=== PATIENT | female | born 1950 | race Caucasian/White ===

== ENCOUNTER 2017-12-15 14:10 | Outpatient (CLI) | payer MEDICARE, BC ==
--- NOTE | 2017-12-16 08:49 | XRAY Report ---
THREE VIEW RIGHT FOOT: 12/15/2017 CLINICAL INDICATION: Pain. FINDINGS: AP, lateral, oblique views of the right foot demonstrate arthritic changes, with subluxation of the second and third metatarsophalangeal joints and degenerative changes of the first metatarsophalangeal joint. Plantar and posterior calcaneal spurring is also present. There is no evidence of acute fracture. No radiopaque foreign body is seen in the soft tissues. IMPRESSION: MIXED ARTHRITIC CHANGES. THE METATARSOPHALANGEAL SUBLUXATIONS ARE MORE TYPICALLY ASSOCIATED WITH RHEUMATOID ARTHRITIS, BUT OSTEOARTHRITIC CHANGES ARE SEEN IN THE FIRST METATARSOPHALANGEAL JOINT. TD: 12/16/2017 08:43 CINDY
--- NOTE | 2017-12-17 11:45 | DEXA Report ---
DEXA SCAN: 12/15/2017 CLINICAL INDICATION: Postmenopausal. TECHNIQUE: Dual energy x-ray absorptiometry (DXA) was performed on a [employer] system. Regions measured are the AP spine, femoral neck, and, if needed, forearm. COMPARISON: None. In accordance with the International Society for Clinical Densitometry (ISCD) guidelines, data from previous exams may be reanalyzed using current recommendations and techniques. This is done to allow a more accurate basis for comparison with the current study. FINDINGS The data for the lumbar spine is as follows: REGION BMD (g/cm/cm) T-SCORE Z-SCORE L1 1.120 -0.1 1.0 L2 1.103 -0.8 0.3 L3 1.088 -0.9 0.2 L4 1.032 -1.4 -0.3 L1-L4 1.080 -0.8 0.3 NOTE: All evaluable vertebrae are used for classification. The data for the hip is as follows: REGION BMD (g/cm/cm) T-SCORE Z-SCORE Neck 0.837 -1.4 -0.2 TOTAL 0.940 -0.5 0.4 NOTE: The femoral neck or total proximal femur, whichever is lowest, is used for classification. IMPRESSION WHO CLASSIFICATION BASED ON THE INTERNATIONAL REFERENCE STANDARD IS OSTEOPENIA. FRACTURE RISK IS INCREASED. RECOMMENDATION: Patients with diagnosis of osteoporosis or osteopenia should have regular bone mineral density assessment. For those eligible for Medicare, routine testing is allowed once every 2 years. Testing frequency can be increased for patients who have rapidly progressing disease or for those who are receiving medical therapy to restore bone mass. COMMENT World Health Organization (WHO) definitions for osteoporosis and osteopenia: NORMAL BMD: T-score at 1.0 or higher, fracture risk is low. OSTEOPENIA BMD: T-score between 1.0 and -2.5, fracture risk is increased. OSTEOPOROSIS BMD: T-score at 2.5 or lower, fracture risk high. National Osteoporosis Foundation recommends: 1. Obtain adequate dietary calcium (at least 1200 mg per day) and vitamin D (400 -800 international units per day). 2. Participate, as appropriate, in regular weightbearing and muscle- strengthening exercise. 3. Avoid tobacco use and reduce alcohol and caffeine intake. 4. For more detailed information see the website at www.NOF.org. TD: 12/16/2017 08:34 MTDD
== END 2017-12-15 14:11 | disposition home or self-care (01) ==
LOC: DI 14:10
PROVIDERS: ATTEND Family Medicine
DX: M79.671 Pain in right foot (principal); M19.071 Primary osteoarthritis, right ankle and foot; Z78.0 Asymptomatic menopausal state; M85.89 Other specified disorders of bone density and structure, multiple sites
CPT/HCPCS: 77080

== ENCOUNTER 2017-12-15 14:15 | Outpatient (CLI) | payer MEDICARE, BC ==
--- NOTE | 2017-12-16 13:29 | Mammography Report ---
DIGITAL SCREENING MAMMOGRAM: 12/15/2017 CLINICAL INDICATION: A 67-year-old for screening. COMPARISON: Films from [place], [place] dated 08/01/2014, 06/27/2013. TECHNIQUE: Routine CC and MLO projections were obtained of the breasts. FINDINGS: Breasts demonstrate scattered fibroglandular densities bilaterally. Punctate, typically benign calcifications are present. No suspicious masses, clustered microcalcifications or regions of architectural distortion are identified. IMPRESSION: BENIGN FINDINGS. RECOMMENDATION: Routine annual screening unless otherwise clinically indicated. BI-RADS CATEGORY 2 - BENIGN FINDINGS. STANDARD QUALIFYING STATEMENTS: 1. This examination was reviewed with the aid of Computer-Aided Detection (CAD). 2. A negative or benign imaging report should not delay biopsy if clinically suspicious findings are present. Consider surgical consultation if warranted. More than 5% of cancers are not identified by imaging. 3. Dense breasts may obscure an underlying neoplasm. TD: 12/16/2017 13:19
== END 2017-12-15 14:16 | disposition home or self-care (01) ==
LOC: DI 14:15
PROVIDERS: ATTEND Family Medicine
DX: Z12.31 Encounter for screening mammogram for malignant neoplasm of breast (principal)
CPT/HCPCS: 77067

== ENCOUNTER 2019-06-10 11:06 | Outpatient (CLI) | payer MEDICARE ==
--- NOTE | 2019-06-11 10:00 | XRAY Report ---
Reason: ASTHMA Procedure Date: 06/10/2019 Accession Number: [id number] / [id number] Procedure: XRS - Chest 2 View X-Ray CPT Code: 85601 Final Report FULL RESULT: EXAM: CHEST RADIOGRAPHY EXAM DATE: 06/10/2019 11:16 AM. CLINICAL HISTORY: Cough with congestion. COMPARISON: None. TECHNIQUE: 2 views. FINDINGS: Lungs/Pleura: Minimal atelectatic changes seen at the lung bases without gross consolidation. Mediastinum: Heart and mediastinal contours are unremarkable. Other: None. IMPRESSION: Mild bibasilar atelectatic changes without gross consolidation. RADIA
== END 2019-06-10 11:07 | disposition home or self-care (01) ==
LOC: DI.S 11:06
PROVIDERS: ATTEND Nurse Practitioner Family
DX: J98.11 Atelectasis (principal)
CPT/HCPCS: 71046

== ENCOUNTER 2020-01-03 13:39 | Outpatient (CLI) | payer MEDICARE ==
--- NOTE | 2020-01-03 14:15 | SLEEP CARE CONSULTATION ---
Information from patient questionnaire entered by Melinda Remy. I have reviewed and concur with the information entered by Melinda Remy. This document represents the service I personally performed and the decisions made by me, Gómez Sam MD, [facility]. History of Present Illness Service Date and Time: 01/03/2020 1339 Reason for Visit: New patient, Previously diagnosed sleep apnea (has CPAP, not used in 2 years) Chief Complaint: reports: Frequent awakenings at night Duration of Symptoms: 4 months Usual bedtime: 10-11 pm Time it takes to fall asleep: 10 minutes Observed to quit breathing while asleep: No Sleeps alone due to snoring: No Number of times waking at night: 4-12 Reasons for waking at night: reports: Other (unsure) Toss, Turn, or Twitch while sleeping: Yes Recalls having dreams: Yes Usually gets out of bed at: 7:30 am Feels refreshed in the morning: No Morning headache: No Sleepy or fatigued during the day: Yes Ever fallen asleep while driving: No Takes day naps: Yes Dreams during day naps: Yes Prior sleep studies: Yes Year and Where: 2015 Additional HPI information: I had the pleasure of seeing Ms. Castorena today regarding obstructive sleep apnea-hypopnea. As you know, she is a 69 year old lady who was diagnosed with the sleep-disordered breathing in [place]. Originally she had a sleep study in 1998 that showed mild obstructive sleep apnea-hypopnea with an AHI of 8.3. In 2016 she had another in-laboratory polysomnography showing an AHI of 32. She used a CPAP for one year then quit because her developed dementia and she has to watch him at night. She recalls some improvement with the treatment. She wore a nasal mask. The CPAP was set at 7 cmH2O. She would like to start using the device again. - Parasomnia Symptoms Ever been unable to move upon waking from sleep: No Ever felt weak in the knees when startled or emotional: No Bothered by creepy, crawly, restless sensations in legs: Yes (sometimes) Problems with memory or concentration: No Subjective Initial Geronimo Sleepiness Scale score: 6 (in 2019) Past Medical History Past Medical History: reports: Hypertension, Arthritis, Asthma, GERD Social History The patient's occupation is a Retired. Patient is and lives in [place]. Have you smoked in the past 12 months: No Alcohol use: Yes Alcohol amount and frequency: 1-2 drinks nightly Caffeine use: Yes Caffeine amount and frequency: 1-2 Family History Family history of sleep disordered breathing: Yes Allergies and Home Medications Drug allergies reviewed: Yes Home medication list reviewed: Yes Review of Systems Cardiovascular: reports: high blood pressure (slight) Respiratory: reports: chronic cough Gastrointestinal: reports: heartburn Ear/Nose/Throat: reports: sinus problems, wisdom teeth removed Endocrine: reports: thyroid disease, sluggishness Musculoskeletal: reports: joint pain, neck pain, back pain, joint swelling Immunologic: reports: other (postnasal drip) Physical Exam Height: 5 ft 4 in Weight: 177 lb Body Mass Index: 30.4 BMI Classification: Obese Impression and Plan IMPRESSION: 1. Obstructive Sleep Apnea-Hypopnea Syndrome, severe, as previously diagnosed but presently not treated. Narrow oropharynx and obesity are common predisposing factors for obstructive sleep apnea-hypopnea syndrome. Pat hophysiology of sleep-disordered breathing was discussed. Because she has not been compliant, we will need to repeat either the in-laboratory polysomnography or home sleep apnea test (HSAT) to requalify her for supplies through Medicare. Plan: 1. Schedule a home sleep apnea test (HSAT) because she cannot leave her home alone at night. 2. Attempt to lose weight. 3. Return for a follow up after the test. Visit Type: In Office Time Spent with Patient (minutes): 15 Provider Statement: I spent 100% of the Face to Face Visit with the patient with greater than 50% spent counseling the patient and coordination of care.
== END 2020-01-03 13:40 | disposition home or self-care (01) ==
LOC: SC 13:39
PROVIDERS: ATTEND Internal Medicine Pulmonary Disease
DX: G47.33 Obstructive sleep apnea (adult) (pediatric) (principal); E66.9 Obesity, unspecified; Z68.30 Body mass index [BMI] 30.0-30.9, adult
CPT/HCPCS: 99203; G0463; 99212

== ENCOUNTER 2020-01-18 09:49 | Outpatient (CLI) | payer MEDICARE ==
--- NOTE | 2020-01-19 11:05 | Mammography Report ---
BILATERAL DIGITAL SCREENING MAMMOGRAM 3D/2D: 01/18/2020 CLINICAL: Routine screening. Comparison is made to exams dated: 12/15/2017 mammogram and 08/11/2014 mammogram - [facility]. The tissue of both breasts is heterogeneously dense. This may lower the sensitivity of ma mmography. There is an 8 mm round asymmetry with an obscured margin in the right breast central to the nipple in the retroareolar region. This is increased in size. No other significant masses, calcifications, or other findings are seen in either breast. IMPRESSION: INCOMPLETE: NEEDS ADDITIONAL IMAGING EVALUATION The 8 mm round asymmetry in the right breast is indeterminate. Additional views with possible ultras ound are recommended. This exam was interpreted at Station ID: [id number]. NOTE: For mammograms, a report in lay terms will be sent to the patient. Approximately 15% of breast malignancies will not be visualized mammographically. In the management of a palpable breast mass, a negative mammogram must not discourage biopsy of a clinically suspicious lesion. Electronically Signed By: Leanne silvestre/:01/18/2020 15:22:01 ACR BI-RADS Category 0: Incomplete 3340F PARENCHYMAL PATTERN: (D) - The breast(s) demonstrate(s) heterogeneously dense fibroglandular parenchy ma. BI-RADS CATEGORY: (0) - 0 Mammo and [place] [id number] Immediate follow-up LATERALITY: (R)
== END 2020-01-18 09:50 | disposition home or self-care (01) ==
LOC: DI 09:49
PROVIDERS: ATTEND Family Medicine
DX: Z12.31 Encounter for screening mammogram for malignant neoplasm of breast (principal); R92.8 Other abnormal and inconclusive findings on diagnostic imaging of breast
CPT/HCPCS: 77063; 77067

== ENCOUNTER 2020-09-16 19:22 | Outpatient (CLI) | payer MEDICARE | END 2020-09-16 19:23 | disposition critical access hospital (66) | LOC: EMS 19:22 | PROVIDERS: ATTEND Emergency Medicine | DX: M25.561 Pain in right knee (principal); M79.604 Pain in right leg | CPT/HCPCS: A0425; A0429 ==

== ENCOUNTER 2020-09-16 20:00 | Inpatient (IN) | payer MEDICARE ==
[2020-09-16] MEDS ORDERED: ACETAMINOPHEN 325 MG TABLET PO STA (20:08)
--- NOTE | 2020-09-16 20:10 | ED Physician Documentation ---
PD HPI LOWER EXT INJURY - Stated complaint Stated Complaint: R KNEE PX - History obtained from History obtained from: Patient - Additional information Additional information: Otherwise healthy 70-year-old woman was at home with her . He started to fall and kind of fell on her and then she went down on her right leg and felt a pop with moderate pain about the right knee and cannot walk or bear weight. No other injuries. No head injury. On initial evaluation declines pain medication other than Tylenol because she does not want to be "fuzzy." Review of Systems Ten Systems: 10 systems reviewed and negative Constitutional: reports: Reviewed and negative Nose: reports: Reviewed and negative Throat: reports: Reviewed and negative PD PAST MEDICAL HISTORY - Present Medications Home Medications: Ambulatory Orders Medication Instructions Recorded Confirmed Albuterol Sulfate [Proair Hfa 1 puffs PRN 09/16/20 Inhaler] Mometasone Furoate [Asmanex Hfa] 2 puffs INH BID 09/16/20 09/16/20 Valsartan/Hydrochlorothiazide 1 tab PO DAILY 09/16/20 09/16/20 [Diovan Hct 160-25 mg Tablet] - Allergies Allergies/Adverse Reactions: Allergies Allergy/AdvReac Type Severity Reaction Status Date / Time amoxicillin Allergy Hives Verified 09/16/20 20:15 bacitracin Allergy Hives Verified 09/16/20 20:15 clavulanic acid Allergy Hives Verified 09/16/20 20:15 [From Augmentin] Sulfa (Sulfonamide Allergy Hives Verified 09/16/20 20:15 Antibiotics) PD ED PE NORMAL - Vitals Vital signs reviewed: Yes - General General: Alert and oriented X 3, No acute distress - HEENT HEENT: PERRL, EOMI - Neck Neck: Supple, no meningeal sign, No bony TTP - Cardiac Cardiac: RRR, No murmur - Respiratory Respiratory: No respiratory distress, Clear bilaterally - Abdomen Abdomen: Soft, Non tender - Back Back: No CVA TTP, No spinal TTP - Derm Derm: Normal color, Warm and dry - Extremities Extremities: Other (There is potential deformity below the right knee, she is quite tender to the inferior part of the right knee, the tibial plateau especially. There is also some tenderness of the lateral right ankle. The hip is nontender. Normal pedal pulses and sensation.) - Neuro Neuro: Alert and oriented X 3, Normal speech Results - Vitals Vitals: Vital Signs - 24 hr 09/16/20 09/16/20 20:10 22:34 Temperature 37.2 C 36.8 C Heart Rate 95 Heart Rate [ 75 Brachial] Respiratory 16 20 Rate Blood Pressure 174/83 H Blood Pressure 149/64 H [Right Brachial artery] O2 Saturation 100 98 Oxygen O2 Source Room air - Labs Labs: Laboratory Tests 09/16/20 09/16/20 09/16/20 21:54 21:54 21:54 WBC 11.0 H RBC 4.26 Hgb 13.9 Hct 41.0 MCV 96.2 MCH 32.6 H MCHC 33.9 RDW 12.5 Plt Count 248 MPV 10.1 Neut # (Auto) 8.1 H Lymph # (Auto) 1.9 Sac # (Auto) 0.8 Eos # (Auto) 0.1 Baso # (Auto) 0.1 Absolute Nucleated RBC 0.00 Nucleated RBC % 0.0 PT 11.8 INR 1.1 Sodium 141 Potassium 3.4 L Chloride 102 Carbon Dioxide 24 Anion Gap 15.0 H BUN 17 Creatinine 0.7 Estimated GFR (MDRD) 83 L Glucose 139 H Calcium 9.5 - Rads (name of study) R knee XR and CT KNee Radiology: EMP read contemporaneously (Displaced depressed right lateral tibial plateau fracture) PD MEDICAL DECISION MAKING - ED course ED course: Healthy 70-year-old woman presents with isolated right knee and leg injury and found to have a lateral tibial plateau fracture. Discussed by phone with Dr. Lau, our on-call orthopedist. He feels like this would be a surgical issue and she should be placed in the hospital pending surgery. That said he notes that he is going off service tomorrow and does not know the comfort level of the surgeon coming on tomorrow with this type of issue. Thankfully, the orthopedic surgeon funeral pre need consultant tomorrow, Dr Castillo, had his phone with him and I communicated with him and he agrees with admission to the hospital for operative fixation. I wrote transition orders to surgical status, and asked Dr. Heidi Zuniga to do a consult history and physical and preoperative clearance. Patient initially did not want anything other than Tylenol for pain but later acquiesced and required some IV pain medication. Departure - Departure Disposition: ED Transfer to [facility] Clinical Impression: Fall from ground level Fracture of right tibial plateau Qualifiers: Encounter type: initial encounter Fracture type: closed Qualified Code(s): S82.141A - Displaced bicondylar fracture of right tibia, initial encounter for closed fracture Condition: Stable
[2020-09-16] MEDS ORDERED: ONDANSETRON 4 MG/2 ML VIAL IVP STA (20:43)
[2020-09-16] MEDS ORDERED: HYDROmorphone 1 MG/ML CARPUJECT IVP STA (20:43)
--- NOTE | 2020-09-16 21:04 | XRAY Report ---
PROCEDURE: Knee 4 View RT INDICATIONS: leg inj TECHNIQUE: 4 views of the right knee(s) were acquired. COMPARISON: None. FINDINGS: Bones: Compressed and displaced lateral tibial plateau fracture. Tricompartmental osteoarthritis. Soft tissues: No joint effusion. No suspicious soft tissue calcifications. IMPRESSION: Depressed lateral tibial plateau fracture. Reviewed by: Stella Hay MD, PhD on 09/16/2020 9:03 PM PST Approved by: Stella Hay MD, PhD on 09/16/2020 9:03 PM PST Station ID: [id number]
--- NOTE | 2020-09-16 21:05 | XRAY Report ---
PROCEDURE: Tib/Fib RT INDICATIONS: leg inj TECHNIQUE: 2 views of the tibia and fibula were acquired. COMPARISON: None FINDINGS: Bones: No fractures or dislocations. No suspicious bony lesions. Soft tissues: No suspicious soft tissue calcifications or masses. IMPRESSION: No fracture involving the distal tibia or distal fibula. Reviewed by: Stella Hay MD, PhD on 09/16/2020 9:04 PM PST Approved by: Stella Hay MD, PhD on 09/16/2020 9:04 PM PST Station ID: [id number]
--- NOTE | 2020-09-16 21:25 | CT Report ---
PROCEDURE: LOWER EXTREMITY WO - RT INDICATIONS: tibial plateau fracture TECHNIQUE: Noncontrast 3 mm axial sections acquired of the right knee, with coronal and sagittal reformats. COMPARISON: None. FINDINGS: Image quality: Excellent. Bones: Comminuted fracture involving the posterior-lateral margin of the lateral tibial plateau. Fra cture fragments are displaced laterally and compressed up to 6 mm. Mild tricompartmental osteoarthrit is. Soft tissues: Small knee joint effusion noted. No juxta-articular edema or fluid collections. IMPRESSION: Displaced and depressed right lateral tibial plateau fracture. Reviewed by: Stella Hay MD, PhD on 09/16/2020 9:24 PM PST Approved by: Stella Hay MD, PhD on 09/16/2020 9:24 PM PST Station ID: [id number]
[2020-09-16] MEDS ORDERED: METOCLOPRAMIDE 10 MG/2 ML VIAL IVP PRN (21:41)
[2020-09-16] MEDS ORDERED: ONDANSETRON 4 MG/2 ML VIAL IVP PRN (21:41)
[2020-09-16] MEDS ORDERED: HYDROmorphone 0.5 MG/0.5 ML SYRINGE IVP PRN (21:41)
[2020-09-16 21:57] LABS: BASOPHILS # (AUTO) 0.1 10^3/uL (0.0-0.1); BASOPHILS % (AUTO) 0.5 %; EOSINOPHILS # (AUTO) 0.1 10^3/uL (0.0-0.7); EOSINOPHILS % (AUTO) 0.5 %; HGB - HEMOGLOBIN 13.9 g/dL (12.0-16.0); LYMPHOCYTES # (AUTO) 1.9 10^3/uL (1.5-3.5); LYMPHOCYTES % (AUTO) 17.4 %; MEAN CORPUSCULAR HEMOGLOBIN 32.6 pg (27.0-31.0); MEAN CORPUSCULAR HGB CONC 33.9 g/dL (32.0-36.0); MEAN CORPUSCULAR VOLUME 96.2 fL (81.0-99.0); MEAN PLATELET VOLUME 10.1 fL (7.9-10.8); MONOCYTES # (AUTO) 0.8 10^3/uL (0.0-1.0); MONOCYTES % (AUTO) 7.4 %; NEUTROPHILS # (AUTO) 8.1 10^3/uL (1.5-6.6); NEUTROPHILS % (AUTO) 73.7 %; PLT - PLATELET COUNT 248 10^3/uL (130-450); RED BLOOD COUNT 4.26 10^6/uL (4.20-5.40); RED CELL DISTRIBUTION WIDTH 12.5 % (12.0-15.0)
[2020-09-16 22:03] LABS: INR 1.1 (0.8-1.2); PT - PROTHROMBIN TIME 11.8 secs (9.9-12.6)
[2020-09-16 22:06] LABS: CALCIUM 9.5 mg/dL (8.5-10.3); CREATININE 0.7 mg/dL (0.4-1.0); POTASSIUM 3.4 mmol/L (3.5-5.0)
[2020-09-16] MEDS: KETOROLAC 15 MG/ML VIAL IVP PRN (22:36)
[2020-09-16] MEDS: LACTATED RINGERS 1,000 ML IV SCH (22:37)
[2020-09-16] MEDS ORDERED: ALBUTEROL NEB 2.5 MG/3 ML INH PRN (22:45)
[2020-09-16] MEDS ORDERED: ZOLPIDEM 5 MG TABLET PO PRN (22:45)
[2020-09-16] MEDS ORDERED: POTASSIUM CHLORIDE 20 MEQ TABLET PO ONE (22:46)
--- NOTE | 2020-09-16 23:18 | CONSULTATION NOTE ---
Referring Provider Name of Referring Provider:: Clifford Castillo and Dr. Lowe Consult Date: 09/16/20 Chief Complaint - Chief Complaint Chief Complaint: fall with tibial fx History of Present Illness - Admitted From Admitted From:: Home via EMS - History Obtained From Records Reviewed: [facility] History obtained from: patient Exam Limitations: none - History of Present Illness HPI Comment/Other: This is a jimmy 70-year-old white female who is the caregiver of her who has Lewy body dementia and severe movement disorder with parkinsonism. She herself has a history of high blood pressure but has no history of coronary artery disease, A. fib, angina, congestive heart failure, or recent change in cardiopulmonary status. 20 years ago she did have an echocardiogram that told her that she had "mitral valve prolapse" but that is the only valvular heart disease she knows about. She denies current chest pain, palpitations, orthopnea. She works very hard at taking care of her . She has had no recent change in her own healthcare status. She was walking in front of him, when he fell forward. He hit the back of her leg, which then caused her to fall sideways. His weight fell on her and her leg. Her weight fell on her leg. She felt the pain and snap as it hit the floor. She is stunned at how fast all of this happened. She states that if she did not have her phone on her, they may have been laying in that hallway for days. There is no way she was going to be able to get up and there is no way for him to get up. She was able to call EMS. She was brought to the emergency room and seen by Dr. Ballesteros. Temperature was 37.2. Pulse was 95. Blood pressure 174/83. Respirations 16 and she is 100% on room air. She has a normal physical exam other than the broken limb. Imaging study confirms a displaced and depressed right lateral tibial plateau fracture. Orthopedic surgery on-call has been notified. He is asked that the patient be made n.p.o. after midnight. Next orthopedic director of corporate responsibility tomorrow will be Dr. Castillo.. Dr. Castillo is aware of the patient will be taking her to the OR tomorrow. I am being asked to see the patient in consultation for preop evaluation. 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 Dad at age 70 of congestive heart failure. 1 sister is completely healthy without diabetes, hypertension, PA, CHF, thyroid, cancer. 1 child is completely healthy. He is head of production at [employer] in [place]. Living arrangement: At home Living Situation: With spouse/s.o. Social History Notes: She used to smoke socially when she was in college. But she never smoked on a regular basis. She has no history of alcohol abuse. She drinks a glass of wine with dinner on a daily basis. 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 She is to her second for the last 14 years. They moved to [place] 4 years ago because [place]. Unfortunately her has Lewy body dementia with severe parkinsonism. She has a private duty hire that works 16 hours a week but that private duty higher is currently sick with the flu. Awaiting Covid testing. She is starting to realize that her (who has 3 children from his first marriage) will most likely either need 24/7 care in their home or to be admitted to a memory care unit. He is starting to develop hallucinations, his risk of fall is much higher. - Substance History Use: Uses substance without health or social issues: NONE Abuse: Recurrent use of substance despite neg consequences: NONE Dependence: Experiences withdrawal or developed tolerances: NONE - POLST Patient has POLST: No POLST Status: Full Code Meds/Allgy - Home Medications Home Medications: Ambulatory Orders Medication Instructions Recorded Confirmed Albuterol Sulfate [Proair Hfa 1 puffs PRN 09/16/20 Inhaler] Mometasone Furoate [Asmanex Hfa] 2 puffs INH BID 09/16/20 09/16/20 Valsartan/Hydrochlorothiazide 1 tab PO DAILY 09/16/20 09/16/20 [Diovan Hct 160-25 mg Tablet] - Allergies Allergies/Adverse Reactions: Allergies Allergy/AdvReac Type Severity Reaction Status Date / Time amoxicillin Allergy Hives Verified 09/16/20 20:15 bacitracin Allergy Hives Verified 09/16/20 20:15 clavulanic acid Allergy Hives Verified 09/16/20 20:15 [From Augmentin] Sulfa (Sulfonamide Allergy Hives Verified 09/16/20 20:15 Antibiotics) Review of Systems - Constitutional Constitutional: reports: Fatigue (That is more emotional and physical. The burden of caring for him right now is tremendous. He is 82 years old and told her that he wants to live to be 89. She burst into tears when he said that.). denies: Fever, Chills, Malaise, Weakness, Poor appetite - Eyes Eyes: denies: Pain, Irritation, Amaurosis, Blurred vision, Vision loss - Ears, Nose & Throat Ears, Nose & Throat: reports: Nasal congestion. denies: Ear pain, Hearing loss, Hearing aids, Vertigo, Nasal pain, Nasal discharge - Cardiovascular Cariovascular: denies: Irregular heart rate, Palpitations, Chest pain, Edema, Lightheadedness, Syncope, Exertional dyspnea, Decr. exercise tolerance - Respiratory Respiratory: reports: Wheezing (occasionally w her asthma, uses asmanex sporadically and not daily), Apnea. denies: Cough, Sputum production, Snoring, Hemoptysis, Orthopnea, SOB at rest, SOB with exertion - Gastrointestinal Gastrointestinal: reports: Diarrhea (chronic and daily w her IBS for decades), Nausea (right now). denies: Abdominal pain, Abdominal distention, Constipation, Change in bowel habits, Rectal bleeding, Bloody stools, Vomiting - Genitourinary Genitourinary: reports: Incontinence (with sneezing rarely, doing kegels now). denies: Dysuria, Frequency, Urgency, Hematuria - Musculoskeletal Musculoskeletal: reports: Muscle aches, Joint pain (new muscle pain right side of neck and new shoulder pain w movement. she has been lifting him a lot more w repetitive injury now). denies: Muscle pain, Back pain - Integumentary Integumentary: denies: Rash, Pruritis - Neurological Neurological: denies: General weakness, Focal weakness, Headache, Dizziness, Memory problems, Pre-existing deficit - Psychiatric Psychiatric: reports: Depression (as she faces the future w his care). denies: Anxiety, Suicidal, Delusions, Hallucinations, Homicidal - Endocrine Endocrine: denies: Polyuria, Polydypsia, Polyphagia - Hematologic/Lymphatic Hematologic/Lymphatic: denies: Anemia, Bruising, Petechiae Exam - Vital Signs Reviewed Vital Signs: Yes Vital Signs: Vital Signs x48h Temp Pulse Pulse Resp BP BP Pulse Ox 09/16/20 22:34 36.8 C 75 20 149/64 H 98 09/16/20 20:10 37.2 C 95 16 174/83 H 100 - Physical Exam General Appearance: positive: No acute distress, Alert, Other (Pleasant oriented 5 foot 4 inch female who is 79.3 kg. Well-nourished, well-developed.) Eyes Bilateral: positive: PERRL, EOMI ENT: positive: Pharynx nml Neck: positive: No JVD. negative: Stiff neck Respiratory: positive: No respiratory distress. negative: Wheezes, Rales, Rhonchi Cardiovascular: positive: Regular rate & rhythm. negative: Systolic murmur, Gal lop/S4, Friction rub Peripheral Pulses: positive: 1+ Abdomen: positive: Non-tender, No organomegaly, Nml bowel sounds, No distention Skin: positive: Warm, Dry Extremities: positive: No pedal edema, Other (Right leg immobile. Left leg is normal. Left leg with normal range of motion. No clubbing cyanosis or edema.) Neurologic/Psychiatric: positive: Oriented x3, CN's nml (2-12), Motor nml, Sensation nml, Mood/affect nml Conclusion/Plan - Diagnosis Diagnosis: Mechanical fall in this jimmy 70-year-old white female who does not have a history of osteoporosis. She has suffered a distal tib-fib fracture on the right. Preoperative evaluation shows her to be at low risk for serious complication, 4.4%. Any complication is 5.3%. She has a 19.3% risk of being discharged to a nursing or rehab facility. At this time there is no acute, new change in status that would require us to change her medications, modify blood pressure, rhythm, or labs. Hypertension is stable. History of asthma stable without current exacerbation. Hypokalemia on labs. - Plan Plan: She is placed in the same day surgery status. N.p.o. after midnight. Pain management written for. Nausea medicine written for. We will hold her blood pressure medicine at this time until she is after surgery. She is not on any beta-blockers. Hypokalemia will be supplemented w oral Kdur. Orthopedic surgery will operate on her tomorrow. Depending on how she is ambulatory she is we will see if she can go home with outpatient physical therapy. Commending that she get an outpatient DEXA scan to evaluate her for osteoporosis in the next 2 to 3 months. She might be a candidate for Reclast once a year. She says prior scans showed osteopenia but no osteoporosis.She is requesting social work consultation to see what her options are to help take care of her . I have also recommended that she talk to his children (2 sons and a daughter) about advance care planning. Lewy body dementia with parkinsonism is a rapidly progressive disease. She is already experiencing the burden of being a caregiver. She is looking for recommendations and advice. I would recommend that she also seek guidance with palliative care consultation. - Lab Results Lab results reviewed: Yes Fish Bones: 09/16/20 21:54 09/16/20 21:54 - Diagnostic Imaging Results Diagnostic Imaging Results: positive: Final report reviewed Diagnostic Imaging Results Comments: Right knee films with depressed lateral tibial plateau fracture. Right tib-fib plain film without fracture Right lower extremity CT with displaced and depressed right lateral tibial plateau fracture.
[2020-09-16 23:43] LABS: B. PARAPERTUSSIS- RESP PCR PAN NOT DETECTED; B. PERTUSSIS- RESP PCR PANEL NOT DETECTED; C. PNEUMONIAE- RESP PCR PANEL NOT DETECTED; CORONAVIRUS 229E-RESP PCR NOT DETECTED; CORONAVIRUS HKU1-RESP PCR NOT DETECTED; CORONAVIRUS NL63-RESP PCR NOT DETECTED; CORONAVIRUS OC43-RESP PCR NOT DETECTED; HUMAN METAPNEUMOVIRUS NOT DETECTED; INFLUENZA A- RESP PCR PANEL NOT DETECTED; INFLUENZA B - RESP PCR PANEL NOT DETECTED; M. PNEUMONIAE- RESP PCR PANEL NOT DETECTED; PARAINFLUENZA VIRUS 1 NOT DETECTED; PARAINFLUENZA VIRUS 2 NOT DETECTED; PARAINFLUENZA VIRUS 3 NOT DETECTED; PARAINFLUENZA VIRUS 4 NOT DETECTED; RHINOVIRUS/ENTEROVIRUS NOT DETECTED; RSV- RESP PCR PANEL NOT DETECTED; SARS-CoV-2 -RESP PCR PANEL NOT DETECTED
[2020-09-17] MEDS: KETOROLAC 15 MG/ML VIAL IVP PRN ×4 (04:08→23:58)
[2020-09-17] MEDS: LACTATED RINGERS 1,000 ML IV SCH (08:22)
[2020-09-17] MEDS: ACETAMINOPHEN 325 MG TABLET PO PRN ×2 (08:35→14:13)
--- NOTE | 2020-09-17 09:13 | CONSULTATION NOTE ---
Referring Provider Name of Referring Provider:: emergency dept, Dr. Pennington Consult Date: 09/17/20 Chief Complaint - Chief Complaint Chief Complaint: pain right knee following fall at home History of Present Illness - History Obtained From Records Reviewed: yes History obtained from: patient Exam Limitations: none - History of Present Illness HPI Comment/Other: This is a pleasant 70-year-old woman who resides in [place]. She lives in [facility] in [facility] for a number of years. She moved here approximately 4- 5 years ago. She is the primary caregiver of her who has Parkinson's and very advanced dementia. He needs almost 23-hour care. Yesterday he was walking and stumbled into her from her back. This caused her to fall onto her right leg. She felt the snap and had immediate pain to her right knee and was unable to bear weight. She denies previous problems with her right knee. Most of her activity is indoor with occasional outdoor for shopping and other necessities. She denies chest pain, shortness of breath, dizziness, loss of consciousness or syncope associated with the fall. Her pain seems to be well controlled around 5-6 at the present time. The pain is not increasing. She has no neurologic or vascular symptoms. She normally walks without walking aid. 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 Dad at age 70 of congestive heart failure. 1 sister is completely healthy without diabetes, hypertension, [place], CHF, thyroid, cancer. 1 child is completely healthy. He is head of [employer] at [employer] in [place]. Living arrangement: At home Living Situation: With spouse/s.o. Social History Notes: She used to smoke socially when she was in college. But she never smoked on a regular basis. She has no history of alcohol abuse. She drinks a glass of wine with dinner on a daily basis. 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 She is to her second for the last 14 years. They moved to [place] 4 [place] ago [place]. Unfortunately her has Lewy body dementia with severe parkinsonism. She has a private duty hire that works 16 hours a week but that private duty higher is currently sick with the flu. Awaiting Covid testing. She is starting to realize that her (who has 3 children from his first marriage) will most likely either need 24/7 care in their home or to be admitted to a memory care unit. He is starting to develop hallucinations, his risk of fall is much higher. - Substance History Use: Uses substance without health or social issues: NONE Abuse: Recurrent use of substance despite neg consequences: NONE Dependence: Experiences withdrawal or developed tolerances: NONE - POLST Patient has POLST: No POLST Status: Full Code Meds/Allgy - Home Medications Home Medications: Ambulatory Orders Medication Instructions Recorded Confirmed Albuterol Sulfate [Proair Hfa 1 puffs PRN 09/16/20 Inhaler] Mometasone Furoate [Asmanex Hfa] 2 puffs INH BID 09/16/20 09/16/20 Valsartan/Hydrochlorothiazide 1 tab PO DAILY 09/16/20 09/16/20 [Diovan Hct 160-25 mg Tablet] - Allergies Allergies/Adverse Reactions: Allergies Allergy/AdvReac Type Severity Reaction Status Date / Time amoxicillin Allergy Hives Verified 09/16/20 20:15 bacitracin Allergy Hives Verified 09/16/20 20:15 clavulanic acid Allergy Hives Verified 09/16/20 20:15 [From Augmentin] Sulfa (Sulfonamide Allergy Hives Verified 09/16/20 20:15 Antibiotics) Exam - Vital Signs Vital Signs: Vital Signs x48h Temp Pulse Resp BP Pulse Ox 09/17/20 08:07 37 C 77 16 144/62 H 96 09/17/20 04:14 37 C 67 16 127/62 94 - Physical Exam General Appearance: positive: No acute distress Peripheral Pulses: positive: 2+ Skin: positive: Dry Neurologic/Psychiatric: positive: Oriented x3, Motor nml, Sensation nml, Mood/affect nml Comments/Other: Her right lower extremity reveals slight valgus alignment in comparison to the left leg. The right knee has mild swelling. Skin is completely intact. She has some tenderness over the medial collateral ligament but most of her tenderness is posterolateral right tibia plateau. With the knee in extension stability is good, right side. Extensor mechanism is intact. There is no ecchymosis. There is no sign of compartment syndrome. Neurovascular is completely intact to right lower extremity Conclusion and Plan - Lab Results Laboratory Results 09/16/20 22:15: Nasal Adenovirus (PCR) NOT DETECTED, Nasal B. parapertussis DNA (PCR) NOT DETECTED, Nasal Coronavir 229E PCR NOT DETECTED, Nasal Coronavir HKU1 PCR NOT DETECTED, Nasal Coronavir NL63 PCR NOT DETECTED, Nasal Coronavir OC43 PCR NOT DETECTED, Nasal Enterovir/Rhinovir PCR NOT DETECTED, Nasal Influenza B PCR NOT DETECTED, Nasal Influenza A PCR NOT DETECTED, Nasal Parainfluen 1 PCR NO T DETECTED, Nasal Parainfluen 2 PCR NOT DETECTED, Nasal Parainfluen 3 PCR NOT DETECTED, Nasal Parainfluen 4 PCR NOT DETECTED, Nasal RSV (PCR) NOT DETECTED, Nasal B.pertussis DNA PCR NOT DETECTED, Nasal C.pneumoniae (PCR) NOT DETECTED, Geo Human Metapneumo PCR NOT DETECTED, Nasal M.pneumoniae (PCR) NOT DETECTED, Nasal SARS-CoV-2 (PCR) NOT DETECTED 09/16/20 21:54: Sodium 141, Potassium 3.4 L, Chloride 102, Carbon Dioxide 24, Anion Gap 15.0 H, BUN 17, Creatinine 0.7, Estimated GFR (MDRD) 83 L, Glucose 139 H, Calcium 9.5 09/16/20 21:54: PT 11.8, INR 1.1 09/16/20 21:54: WBC 11.0 H, RBC 4.26, Hgb 13.9, Hct 41.0, MCV 96.2, MCH 32.6 H, MCHC 33.9, RDW 12.5, Plt Count 248, MPV 10.1, Neut # (Auto) 8.1 H, Lymph # (Auto) 1.9, Wilkin # (Auto) 0.8, Eos # (Auto) 0.1, Baso # (Auto) 0.1, Absolute Nucleated RBC 0.00, Nucleated RBC % 0.0 - Diagnostic Imaging Results Diagnostic Imaging Results: negative: Read independently (I independently visualized both routine x-rays of the right tibia, right knee and also the CT scan. She has a split depression fracture involving the posterior lateral aspect of the right tibial plateau, approximately 5 to 6 mm of depression but localized. This is a partial articular injury. The) - Diagnosis Diagnosis: Split depression fracture right lateral tibial plateau, partial articular injury - Plan Plan: I spent considerable time discussing his the potential treatment options: Nonoperative versus operative or delayed operative. The operative would involve open reduction internal fixation of the lateral tibial plateau. The nonoperative treatment would involve closed treatment with a hinged knee brace, nonweightbearing and early range of motion. The main complication of this fracture is posttraumatic arthritis of the knee joint. This could necessitate consideration for a right total knee arthroplasty. Her had a problem with his right hip, fracture, underwent open reduction internal fixation 3 times with revision before undergoing a total hip arthroplasty. She prefers to avoid surgery if it is possible and would consider total knee arthroplasty if having difficulties with nonoperative treatment. I think the results are better with her primary total knee arthroplasty than after a failed open reduction internal fixation. She also has osteopenia. Using shared decision making, she prefers nonoperative treatment and knows that a right total knee arthroplasty may be necessary in the future. Physical and occupational therapy can be ordered. She should ambulate with a walker nonweightbearing. If she can do this and is a safe discharge, she could return to home. I would like to recheck her in the orthopedic clinic in 1 week. I would recommend 81 mg of aspirin twice daily for deep venous thrombosis prophylaxis. Discussed with Dr. Shipman.
--- NOTE | 2020-09-17 10:25 | PHARMACY PROGRESS NOTE ---
- Best Possible Medication History Admit Date and Time: Processed by: Pharmacy Medication History completed: Yes Patient Interview: Completed Secondary Source(s): Pharmacy records, Insurance records As the person ultimately responsible for medication therapy, providers are able to order a medication from an existing home medication list in [facility] via the "Reconcile Routine" prior to Confirmation of that medication by manager decision support. Such practice is discouraged except when the physician, in their clinical judgment, deems that a medical need exists for a medication without regard to previous use.
--- NOTE | 2020-09-17 18:32 | PROVIDER PROGRESS NOTE ---
Subjective - Prog Note Date Prog Note Date: 09/17/20 - Subjective Subjective: She still complains of significant pain around the right knee and she feels like she has muscle spasms in the right leg. She states her pain is just below a 10 out of 10. She states it is worse than giving . Current Medications - Current Medications Current Medications: Active Medications Acetaminophen (Acetaminophen 325 Mg Tablet) 650 mg PO Q6H PRN PRN Reason: Pain or Fever > 38C (100.4F) Last Admin: 09/17/20 14:13 Dose: 650 mg Documented by: Hydrocodone Bitart/Acetaminophen (Hydrocod/Acetam 10 Mg/325 Mg Tablet) 1 tab PO Q4HR PRN PRN Reason: PAIN Albuterol (Albuterol Neb 2.5 Mg/3 Ml) 2.5 mg INH RTQ4H PRN PRN Reason: Wheezing Aspirin (Aspirin Chew 81 Mg Tablet) 81 mg PO BID YANG Hydrochlorothiazide (Hydrochlorothiazide 25 Mg Tablet) 25 mg PO DAILY YANG Hydromorphone HCl (Hydromorphone 0.5 Mg/0.5 Ml Syringe) 0.5 mg IVP Q1H PRN PRN Reason: PAIN Ketorolac Tromethamine (Ketorolac 15 Mg/Ml Vial) 15 mg IVP Q6H PRN PRN Reason: PAIN Stop: 09/21/20 21:40 Last Admin: 09/17/20 16:25 Dose: 15 mg Documented by: Losartan Potassium (Losartan 50 Mg Tablet) 50 mg PO DAILY YANG Metoclopramide HCl (Metoclopramide 10 Mg/2 Ml Vial) 5 mg IVP Q6H PRN PRN Reason: Nausea / Vomiting Last Admin: 09/16/20 22:43 Dose: 5 mg Documented by: Ondansetron HCl (Ondansetron 4 Mg/2 Ml Vial) 4 mg IVP Q6H PRN PRN Reason: Nausea / Vomiting Zolpidem Tartrate (Zolpidem 5 Mg Tablet) 5 mg PO QPM PRN PRN Reason: Insomnia Albuterol Sulfate [Proair Hfa Inhaler] 2 puffs INH ONCE PRN 09/16/20 Mometasone Furoate [Asmanex Hfa] 2 puffs INH BID 09/16/20 Valsartan/Hydrochlorothiazide [Diovan Hct 160-25 mg Tablet] 1 tab PO DAILY 09/16/20 Zolpidem [Ambien] 2.5 - 5 mg PO QPM PRN 09/17/20 Objective - Vital Signs/Intake & Output Reviewed Vital Signs: Yes Vital Signs: Vital Signs x48h Temp Pulse Pulse Pulse Resp BP BP 09/17/20 15:55 37.0 C 75 18 149/73 H 09/17/20 11:57 36.9 C 72 16 140/57 H 09/17/20 11:30 80 72 158/60 H BP Pulse Ox 09/17/20 15:55 98 09/17/20 11:57 97 09/17/20 11:30 142/60 H Intake & Output: Intake & Output 09/14/20 09/15/20 09/16/20 09/17/20 23:59 23:59 23:59 23:59 Intake Total 1803.3 Output Total 300 Balance 1503.3 - Objective General Appearance: positive: No acute distress, Alert Eyes Bilateral: positive: Normal inspection, Conjunctivae nml ENT: positive: ENT inspection nml Neck: positive: Nml inspection Respiratory: positive: No respiratory distress Extremities: positive: Other (Her right lower extremity is in a knee brace with a dressing wrapped around it from the mid thigh down to her toes. She is able to move her toes for me and sensation is intact.) - Lab Results Fish Bones: 09/16/20 21:54 09/16/20 21:54 Other Labs: Lab Results x24hrs 09/16/20 09/16/20 09/16/20 Range/Units 22:15 21:54 21:54 WBC (4.8-10.8) x10^3/uL RBC (4.20-5.40) 10^6/uL Hgb (12.0-16.0) g/dL Hct (37.0-47.0) % MCV (81.0-99.0) fL MCH (27.0-31.0) pg MCHC (32.0-36.0) g/dL RDW (12.0-15.0) % Plt Count (130-450) 10^3/uL MPV (7.9-10.8) fL Neut # (Auto) (1.5-6.6) 10^3/uL Lymph # (Auto) (1.5-3.5) 10^3/uL [place] # (Auto) (0.0-1.0) 10^3/uL Eos # (Auto) (0.0-0.7) 10^3/uL Baso # (Auto) (0.0-0.1) 10^3/uL Absolute Nucleated RBC x10^3/uL Nucleated RBC % /100WBC PT 11.8 (9.9-12.6) secs INR 1.1 (0.8-1.2) Sodium 141 (135-145) mmol/L Potassium 3.4 L (3.5-5.0) mmol/L Chloride 102 (101-111) mmol/L Carbon Dioxide 24 (21-32) mmol/L Anion Gap 15.0 H (6-13) BUN 17 (6-20) mg/dL Creatinine 0.7 (0.4-1.0) mg/dL Estimated GFR (MDRD) 83 L (>89) Glucose 139 H (70-100) mg/dL Calcium 9.5 (8.5-10.3) mg/dL Nasal Adenovirus (PCR) NOT DETECTED Nasal B. parapertussis DNA (PCR) NOT DETECTED Nasal Coronavir 229E PCR NOT DETECTED Nasal Coronavir HKU1 PCR NOT DETECTED Nasal Coronavir NL63 PCR NOT DETECTED Nasal Coronavir OC43 PCR NOT DETECTED Nasal Enterovir/Rhinovir PCR NOT DETECTED Nasal Influenza B PCR NOT DETECTED Nasal Influenza A PCR NOT DETECTED Nasal Parainfluen 1 PCR NOT DETECTED Nasal Parainfluen 2 PCR NOT DETECTED Nasal Parainfluen 3 PCR NOT DETECTED Nasal Parainfluen 4 PCR NOT DETECTED Nasal RSV (PCR) NOT DETECTED Nasal B.pertussis DNA PCR NOT DETECTED Nasal C.pneumoniae (PCR) NOT DETECTED Geo Human Metapneumo PCR NOT DETECTED Nasal M.pneumoniae (PCR) NOT DETECTED Nasal SARS-CoV-2 (PCR) NOT DETECTED 09/16/20 Range/Units 21:54 WBC 11.0 H (4.8-10.8) x10^3/uL RBC 4.26 (4.20-5.40) 10^6/uL Hgb 13.9 (12.0-16.0) g/dL Hct 41.0 (37.0-47.0) % MCV 96.2 (81.0-99.0) fL MCH 32.6 H (27.0-31.0) pg MCHC 33.9 (32.0-36.0) g/dL RDW 12.5 (12.0-15.0) % Plt Count 248 (130-450) 10^3/uL MPV 10.1 (7.9-10.8) fL Neut # (Auto) 8.1 H (1.5-6.6) 10^3/uL Lymph # (Auto) 1.9 (1.5-3.5) 10^3/uL [place] # (Auto) 0.8 (0.0-1.0) 10^3/uL Eos # (Auto) 0.1 (0.0-0.7) 10^3/uL Baso # (Auto) 0.1 (0.0-0.1) 10^3/uL Absolute Nucleated RBC 0.00 x10^3/uL Nucleated RBC % 0.0 /100WBC PT (9.9-12.6) secs INR (0.8-1.2) Sodium (135-145) mmol/L Potassium (3.5-5.0) mmol/L Chloride (101-111) mmol/L Carbon Dioxide (21-32) mmol/L Anion Gap (6-13) BUN (6-20) mg/dL Creatinine (0.4-1.0) mg/dL Estimated GFR (MDRD) (>89) Glucose (70-100) mg/dL Calcium (8.5-10.3) mg/dL Nasal Adenovirus (PCR) Nasal B. parapertussis DNA (PCR) Nasal Coronavir 229E PCR Nasal Coronavir HKU1 PCR Nasal Coronavir NL63 PCR Nasal Coronavir OC43 PCR Nasal Enterovir/Rhinovir PCR Nasal Influenza B PCR Nasal Influenza A PCR Nasal Parainfluen 1 PCR Nasal Parainfluen 2 PCR Nasal Parainfluen 3 PCR Nasal Parainfluen 4 PCR Nasal RSV (PCR) Nasal B.pertussis DNA PCR Nasal C.pneumoniae (PCR) Geo Human Metapneumo PCR Nasal M.pneumoniae (PCR) Nasal SARS-CoV-2 (PCR) Assessment/Plan - Problem List (1) Fracture of right tibial plateau Impression: She had a discussion with orthopedic surgery and the plan is for nonoperative management at this time. Her pain is still poorly controlled despite IV Toradol and she was unable to ambulate with physical therapy today and felt dizzy and lightheaded. Orthostatics were negative. She will remain hospitalized over night for further pain control. We will place her on Tylenol [id number] as well as oral NSAIDs as needed and will trial oxycodone. Will consider Flexeril given her muscle spasms. Orthopedic surgeries also recommending 81 mg twice daily of aspirin for DVT prophylaxis which we have started. We will have her continue to work with physical therapy tomorrow. Social work has been consulted to discuss potential options for SNF for rehab. Appreciate orthopedic surgery input. Qualifiers: Encounter type: initial encounter Fracture type: closed Qualified Code(s): S82.141A - Displaced bicondylar fracture of right tibia, initial encounter for closed fracture (2) Hypertension Impression: Her blood pressure is elevated today with systolic in the 140s. She did not receive her home antihypertensive. This has been resumed for tomorrow morning.
[2020-09-17] MEDS ORDERED: IBUPROFEN 400 MG TABLET PO PRN (18:36)
[2020-09-17] MEDS ORDERED: oxyCODONE 5 MG TABLET PO PRN (18:37)
[2020-09-17] MEDS: ASPIRIN CHEW 81 MG TABLET PO SCH (20:34)
[2020-09-17] MEDS: CYCLOBENZAPRINE 10 MG TABLET PO PRN (20:35)
[2020-09-17] MEDS: ACETAMINOPHEN 500 MG TABLET PO SCH (22:11)
[2020-09-18] MEDS: ACETAMINOPHEN 500 MG TABLET PO SCH ×3 (05:53→21:18)
[2020-09-18] MEDS: KETOROLAC 15 MG/ML VIAL IVP PRN (06:03)
[2020-09-18] MEDS: hydroCHLOROthiazide 25 MG TABLET PO SCH (09:33)
[2020-09-18] MEDS: LOSARTAN 50 MG TABLET PO SCH (09:33)
[2020-09-18] MEDS: ASPIRIN CHEW 81 MG TABLET PO SCH ×2 (09:33→21:17)
[2020-09-18] MEDS: IBUPROFEN 400 MG TABLET PO PRN ×2 (09:43→16:11)
--- NOTE | 2020-09-18 10:09 | PROVIDER PROGRESS NOTE ---
Subjective - Other Other Information/Narrative: This is a 70-year-old woman with split depression lateral tibial plateau fracture being treated nonoperatively. She was unable to be discharged to home yesterday because of inadequate safety and her gait training. She also has a that has fully dependent is upon the patient with advanced dementia.. She has adequate pain control to right knee with pain medication. She needs to continue working on nonweightbearing gait, right leg. Next week I would like to put her in a hinged long leg brace for the right leg and begin range of motion of the right knee but continue nonweightbearing on the right leg. She most likely would benefit from alf facility until she can become more ambulatory and able to weight-bear on her right leg. Her neurovascular is intact to the right lower extremity and her splint is intact to right leg. Objective - Patient Data Vital Signs: Vital Signs x48h Temp Pulse Resp BP Pulse Ox 09/18/20 08:24 36.7 C 76 16 145/80 H 96 09/18/20 05:00 36.7 C 65 16 136/76 H 96 Weight: Weight 09/16/20 09/17/20 09/18/20 23:59 23:59 23:59 Weight (kg) 79.379 kg Intake & Output: Intake and Output Totals x24h 09/16/20 09/17/20 09/18/20 23:59 23:59 23:59 Intake Total 1903.3 Output Total 550 250 Balance 1353.3 -250 - Lab Results Lab Results: 09/16/20 21:54 09/16/20 21:54 - Current Medications Current Medications: Current Medications Generic Name Dose Route Start Last Admin Trade Name [place]q PRN Reason Stop Dose Admin Acetaminophen 1,000 mg 09/17/20 22:00 09/18/20 05:53 Acetaminophen 500 Mg Tablet PO Not Given TID YANG Aspirin 81 mg 09/17/20 21:00 09/18/20 09:33 Aspirin Chew 81 Mg Tablet PO 81 mg BID YANG Administration Cyclobenzaprine HCl 10 mg 09/17/20 20:05 09/17/20 20:35 Cyclobenzaprine 10 Mg Tablet PO 10 mg TID PRN Administration Spasms Hydrochlorothiazide 25 mg 09/18/20 09:00 09/18/20 09:33 Hydrochlorothiazide 25 Mg Tablet PO 25 mg DAILY YANG Administration Ibuprofen 600 mg 09/17/20 20:05 09/18/20 09:43 Ibuprofen 400 Mg Tablet PO 600 mg Q6HR PRN Administration PAIN Ketorolac Tromethamine 15 mg 09/16/20 21:41 09/18/20 06:03 Ketorolac 15 Mg/Ml Vial IVP 09/21/20 21:40 15 mg Q6H PRN Administration PAIN Losartan Potassium 50 mg 09/18/20 09:00 09/18/20 09:33 Losartan 50 Mg Tablet PO 50 mg DAILY YANG Administration Metoclopramide HCl 5 mg 09/16/20 21:41 09/16/20 22:43 Metoclopramide 10 Mg/2 Ml Vial IVP 5 mg Q6H PRN Administration Nausea / Vomiting
[2020-09-18] MEDS ORDERED: oxyCODONE ER 10 MG TABLET PO PRN (10:31)
--- NOTE | 2020-09-18 10:37 | HISTORY & PHYSICAL EXAMINATION ---
Chief Complaint - Chief Complaint Chief Complaint: right lower extremity pain History of Present Illness - Admitted From Admitted From:: medical floor - History Obtained From Records Reviewed: [facility] History obtained from: pt and notes in [facility] - History of Present Illness HPI Comment/Other: Th is a 70-years old female with a past medical history significant for hypertension, allergy asthma, Sleep apnea, who has been on medical floor already close to two days. Now pt's chieft complaint is the pain on her right lower extremity is not controlled. Pt had Mechanical fall in 09/16/20. When she walked in the front of her , her fell forward and hit the back of her leg, and caused she fall. She felt the pain on her right lower extremity. CT of right lower extremity confirms a displaced and depressed right lateral tibial plateau fracture. Orthopedics already saw pt and discussed the care plan with pt. Nonoperative plan now was already as pt's care plan. Initially patient' care plan is one day surgery. Patient already had one more day time in hospital. I was asked to admit pt at observation unit. now pt complain of her pain was not controlled. Pt fear to take opiates pain medication at hospital. Pt report she felt mild dizziness in the Hospital before. Now she feel improved. Orthostatic BP check patient was not indicated to orthostatic hypotension. Patient had fair blood pressure control. Patient had adequate pain medications in [facility]. Patient's had advanced dementia and he need heavy care. The plan is af ter the patient had pain control, patient and her may both go to SNF. Patient need to continue to have care in SNF as recommended by team. History - Past Medical History Cardiovascular: reports: Hypertension Respiratory: reports: Asthma, Sleep apnea Neuro: reports: None Endocrine/Autoimmune: reports: None GI: reports: Chronic diarrhea (from IBS) CLARK DRIVER: reports: Other () : reports: Incontinence (rarely w sneeze) HEENT: reports: None Psych: reports: None Musculoskeletal: reports: None Derm: reports: None - Past Surgical History HEENT: reports: Other - Family & Social History Family History Comment/Other: Mother at age 65 of complications of Alzheimer's. Dad at age 70 of congestive heart failure. 1 sister is completely healthy without diabetes, hypertension, [place], CHF, thyroid, cancer. 1 child is completely healthy. He is head of [employer] at [employer] in [place]. Living arrangement: At home Living Situation: With spouse/s.o. Social History Notes: She used to smoke socially when she was in college. But she never smoked on a regular basis. She has no history of alcohol abuse. She drinks a glass of wine with dinner on a daily basis. 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 She is to her second for the last 14 years. They moved to [place] 4 years ago because it so beautiful appear. Unfortunately her has Lewy body dementia with severe parkinsonism. She has a private duty hire that works 16 hours a week but that private duty higher is currently sick with the flu. Awaiting Covid testing. She is starting to realize that her (who has 3 children from his first marriage) will most likely either need 24/7 care in their home or to be admitted to a memory care unit. He is starting to develop hallucinations, his risk of fall is much higher. - Substance History Use: Uses substance without health or social issues: NONE Abuse: Recurrent use of substance despite neg consequences: NONE Dependence: Experiences withdrawal or developed tolerances: NONE - POLST Patient has POLST: No POLST Status: Full Code Meds/Allgy - Home Medications Home Medications: Ambulatory Orders Medication Instructions Recorded Confirmed Albuterol Sulfate [Proair Hfa 2 puffs INH ONCE PRN 09/16/20 09/17/20 Inhaler] Mometasone Furoate [Asmanex Hfa] 2 puffs INH BID 09/16/20 09/16/20 Valsartan/Hydrochlorothiazide 1 tab PO DAILY 09/16/20 09/16/20 [Diovan Hct 160-25 mg Tablet] Zolpidem [Ambien] 2.5 - 5 mg PO QPM PRN 09/17/20 09/17/20 - Allergies Allergies/Adverse Reactions: Allergies Allergy/AdvReac Type Severity Reaction Status Date / Time amoxicillin Allergy Hives Verified 09/16/20 20:15 bacitracin Allergy Hives Verified 09/16/20 20:15 clavulanic acid Allergy Hives Verified 09/16/20 20:15 [From Augmentin] Sulfa (Sulfonamide Allergy Hives Verified 09/16/20 20:15 Antibiotics) Review of Systems - Constitutional Constitutional: denies: Fatigue, Fever, Chills, Weakness, Poor appetite, Diaphoresis - Eyes Eyes: denies: Pain, Blurred vision, Vision loss - Ears, Nose & Throat Ears, Nose & Throat: denies: Ear pain, Tinnitus, Nosebleeds, Bleeding gums - Cardiovascular Cariovascular: denies: Irregular heart rate, Palpitations, Chest pain, Edema, Lightheadedness, Syncope, Exertional dyspnea, Decr. exercise tolerance - Respiratory Respiratory: denies: Cough, Wheezing, Snoring, Hemoptysis, Orthopnea, SOB at rest, SOB with exertion - Gastrointestinal Gastrointestinal: denies: Abdominal pain, Constipation, Rectal bleeding, Black stools, Bloody stools, Nausea, Vomiting - Genitourinary Genitourinary: denies: Dysuria, Urgency, Flank pain - Musculoskeletal Musculoskeletal: denies: Muscle pain, Muscle aches - Integumentary Integumentary: denies: Rash, Lesions, Lumps - Neurological Neurological: denies: General weakness, Focal weakness, Headache, Dizziness, Numbness, Pre-existing deficit, Seizures, Incoordination, Slurred speech - Psychiatric Psychiatric: denies: Depression, Suicidal, Delusions - Endocrine Endocrine: denies: Polyuria, Polyphagia - Hematologic/Lymphatic Hematologic/Lymphatic: denies: Anemia, Petechiae, Blood clots Prior Level of Functionality: Patient is independent in the home Exam - Vital Signs Vital Signs: Vital Signs x48h Temp Pulse Resp BP Pulse Ox 09/18/20 08:24 36.7 C 76 16 145/80 H 96 09/18/20 05:00 36.7 C 65 16 136/76 H 96 - Physical Exam General Appearance: positive: No acute distress, Alert. negative: Lethargic Eyes Bilateral: positive: Normal inspection, PERRL, No lid inflammation ENT: positive: ENT inspection nml, No signs of dehydration. negative: Purulent nasal drainage Neck: positive: Nml inspection, Trachea midline. negative: Thyromegaly, Tracheal deviation Respiratory: positive: Chest non-tender, No respiratory distress, Breath sounds nml. negative: Wheezes, Rales Cardiovascular: positive: Regular rate & rhythm, No murmur. negative: Tachycardia, Bradycardia, Systolic murmur, Diastolic murmur Peripheral Pulses: positive: 2+ Abdomen: positive: Non-tender, Nml bowel sounds, No distention. negative: Tenderness, Guarding, Rebound Back: positive: Nml inspection Skin: positive: Warm, Dry. negative: Cyanosis, Diaphoresis, Pallor Extremities: positive: Other (pt had brace covered on her right lower extremity from her knee to ankle. pt had intact distal neurovascular status on right lower extremity). negative: Pedal edema Neurologic/Psychiatric: positive: Oriented x3, Sensation nml, Mood/affect nml. negative: Weakness, Sensory loss, Facial droop, Slurred/abnml speech, Depressed mood/affect Sepsis Event Note (H) - Evaluation Current Stage of Sepsis: Ruled out Conclusion/Plan - Problem List (1) Fracture of right tibial plateau Conclusion/Plan: nonoperative now and possible postponed surgery plan was already the agreement between pt and orthopedics surgeon. Aspirin twice daily for DVT prophylaxis as surgeon recommended. pain control with Ibuprofen and Toradol, and Oxycodon ER/[place] as needed. Patient has been feared to take opiates pain medication, we will encourage pt take pain medications as needed at this point. Continue PT and OT, Continue consult with social work for discharge to SNF With her . Qualifiers: Encounter type: initial encounter Fracture type: closed Qualified Code(s): S82.141A - Displaced bicondylar fracture of right tibia, initial encounter for closed fracture (2) Hypertension Conclusion/Plan: Patient has a history of hypertension. Patient already resumed her home blood pressure medicine. Patient has no orthostatic hypotension in the assessment. Continue vital signs monitor (3) Asthma Conclusion/Plan: stable, no any acute complaint, will be resume home albuterol INH as needed - Lab Results Lab results reviewed: Yes Fish Bones: 09/18/20 10:43 09/18/20 10:43 Core Measures - Anticipated LOS I expect patient to be DC'd or transferred within 96 hours.: Yes - DVT/VTE - Prophylaxis VTE/DVT Device ordered at admit?: Yes VTE/DVT Prophylaxis med ordered at admit?: Yes
[2020-09-18 10:52] LABS: BASOPHILS % (AUTO) 0.5 %; EOSINOPHILS # (AUTO) 0.3 10^3/uL (0.0-0.7); EOSINOPHILS % (AUTO) 3.3 %; HCT - HEMATOCRIT 41.1 % (37.0-47.0); HGB - HEMOGLOBIN 13.6 g/dL (12.0-16.0); LYMPHOCYTES # (AUTO) 1.9 10^3/uL (1.5-3.5); LYMPHOCYTES % (AUTO) 22.8 %; MEAN CORPUSCULAR HEMOGLOBIN 32.9 pg (27.0-31.0); MEAN CORPUSCULAR HGB CONC 33.1 g/dL (32.0-36.0); MEAN CORPUSCULAR VOLUME 99.3 fL (81.0-99.0); MEAN PLATELET VOLUME 10.2 fL (7.9-10.8); MONOCYTES # (AUTO) 0.7 10^3/uL (0.0-1.0); MONOCYTES % (AUTO) 8.1 %; NEUTROPHILS # (AUTO) 5.3 10^3/uL (1.5-6.6); NEUTROPHILS % (AUTO) 65.2 %; PLT - PLATELET COUNT 232 10^3/uL (130-450); RED BLOOD COUNT 4.14 10^6/uL (4.20-5.40); RED CELL DISTRIBUTION WIDTH 12.7 % (12.0-15.0); WHITE BLOOD COUNT 8.2 x10^3/uL (4.8-10.8)
[2020-09-18 11:31] LABS: CALCIUM 9.7 mg/dL (8.5-10.3); CREATININE 0.8 mg/dL (0.4-1.0); POTASSIUM 4.2 mmol/L (3.5-5.0)
[2020-09-18] MEDS: HYDROcod/ACETAM 10 MG/325 MG TABLET PO PRN ×2 (12:29→21:19)
[2020-09-18] MEDS: CYCLOBENZAPRINE 10 MG TABLET PO PRN (21:16)
[2020-09-19] MEDS: IBUPROFEN 400 MG TABLET PO PRN ×2 (00:09→17:22)
[2020-09-19 04:53] LABS: BASOPHILS # (AUTO) 0.1 10^3/uL (0.0-0.1); BASOPHILS % (AUTO) 0.8 %; EOSINOPHILS # (AUTO) 0.4 10^3/uL (0.0-0.7); EOSINOPHILS % (AUTO) 4.8 %; HCT - HEMATOCRIT 39.2 % (37.0-47.0); HGB - HEMOGLOBIN 12.7 g/dL (12.0-16.0); LYMPHOCYTES # (AUTO) 2.7 10^3/uL (1.5-3.5); LYMPHOCYTES % (AUTO) 34.3 %; MEAN CORPUSCULAR HEMOGLOBIN 31.9 pg (27.0-31.0); MEAN CORPUSCULAR HGB CONC 32.4 g/dL (32.0-36.0); MEAN CORPUSCULAR VOLUME 98.5 fL (81.0-99.0); MEAN PLATELET VOLUME 10.2 fL (7.9-10.8); MONOCYTES # (AUTO) 0.6 10^3/uL (0.0-1.0); MONOCYTES % (AUTO) 7.9 %; NEUTROPHILS # (AUTO) 4.1 10^3/uL (1.5-6.6); NEUTROPHILS % (AUTO) 51.9 %; PLT - PLATELET COUNT 213 10^3/uL (130-450); RED BLOOD COUNT 3.98 10^6/uL (4.20-5.40); RED CELL DISTRIBUTION WIDTH 12.6 % (12.0-15.0); WHITE BLOOD COUNT 7.9 x10^3/uL (4.8-10.8)
[2020-09-19] MEDS: HYDROcod/ACETAM 10 MG/325 MG TABLET PO PRN ×3 (04:59→13:33)
[2020-09-19] MEDS: ACETAMINOPHEN 500 MG TABLET PO SCH ×3 (04:59→21:52)
[2020-09-19 05:05] LABS: CALCIUM 9.1 mg/dL (8.5-10.3); CREATININE 0.7 mg/dL (0.4-1.0); POTASSIUM 3.4 mmol/L (3.5-5.0)
[2020-09-19] MEDS ORDERED: POTASSIUM CHLORIDE 20 MEQ TABLET PO ONE (07:40)
[2020-09-19] MEDS: ASPIRIN CHEW 81 MG TABLET PO SCH ×2 (08:47→21:52)
[2020-09-19] MEDS: LOSARTAN 50 MG TABLET PO SCH (08:47)
[2020-09-19] MEDS: hydroCHLOROthiazide 25 MG TABLET PO SCH (08:47)
[2020-09-19 15:23] LABS: B. PARAPERTUSSIS- RESP PCR PAN NOT DETECTED; B. PERTUSSIS- RESP PCR PANEL NOT DETECTED; C. PNEUMONIAE- RESP PCR PANEL NOT DETECTED; CORONAVIRUS 229E-RESP PCR NOT DETECTED; CORONAVIRUS HKU1-RESP PCR NOT DETECTED; CORONAVIRUS NL63-RESP PCR NOT DETECTED; CORONAVIRUS OC43-RESP PCR NOT DETECTED; HUMAN METAPNEUMOVIRUS NOT DETECTED; INFLUENZA A- RESP PCR PANEL NOT DETECTED; INFLUENZA B - RESP PCR PANEL NOT DETECTED; M. PNEUMONIAE- RESP PCR PANEL NOT DETECTED; PARAINFLUENZA VIRUS 1 NOT DETECTED; PARAINFLUENZA VIRUS 2 NOT DETECTED; PARAINFLUENZA VIRUS 3 NOT DETECTED; PARAINFLUENZA VIRUS 4 NOT DETECTED; RHINOVIRUS/ENTEROVIRUS NOT DETECTED; RSV- RESP PCR PANEL NOT DETECTED; SARS-CoV-2 -RESP PCR PANEL NOT DETECTED
--- NOTE | 2020-09-19 15:42 | PROVIDER PROGRESS NOTE ---
Assessment/Plan - Problem List (1) Fracture of right tibial plateau Qualifiers: Encounter type: initial encounter Fracture type: closed Qualified Code(s): S82.141A - Displaced bicondylar fracture of right tibia, initial encounter for closed fracture Assessment/Plan: 09/19 today pt's pain is better controlled. Continue to have PT and OT, Aspirin twice daily for DVT prophylaxis, Consult with social work, Patient is a pending for discharge to SNF. add Covid 19 test for d/c pt is nonoperative now and possible postponed surgery plan which was already the agreement between pt and orthopedics surgeon. Aspirin twice daily for DVT prophylaxis as surgeon recommended. pain control with Ibuprofen and Toradol, and Oxycodon ER/[place] as needed. Patient has been feared to take opiates pain medication, we will encourage pt take pain medications as needed at this point. Continue PT and OT, Continue consult with social work for discharge to SNF With her . (2) Hypertension Conclusion/Plan: 09/19 stable. Patient has a history of hypertension. Patient already resumed her home blood pressure medicine. Patient has no orthostatic hypotension in the assessment. Continue vital signs monitor (3) Asthma Conclusion/Plan: stable, no any acute complaint, will be resume home albuterol INH as needed - Current Meds Current Meds: Current Medications Generic Name Dose Route Start Last Admin Trade Name [place]q PRN Reason Stop Dose Admin Acetaminophen 1,000 mg 09/17/20 22:00 09/19/20 13:35 Acetaminophen 500 Mg Tablet PO Not Given TID YANG Hydrocodone Bitart/Acetaminophen 1 tab 09/17/20 09:24 09/19/20 13:33 Hydrocod/Acetam 10 Mg/325 Mg Tablet PO 1 tab Q4HR PRN Administration PAIN Aspirin 81 mg 09/17/20 21:00 09/19/20 08:47 Aspirin Chew 81 Mg Tablet PO 81 mg BID YANG Administration Cyclobenzaprine HCl 10 mg 09/17/20 20:05 09/18/20 21:16 Cyclobenzaprine 10 Mg Tablet PO 5 mg TID PRN Administration Spasms Hydrochlorothiazide 25 mg 09/18/20 09:00 09/19/20 08:47 Hydrochlorothiazide 25 Mg Tablet PO 25 mg DAILY YANG Administration Ibuprofen 600 mg 09/17/20 20:05 09/19/20 00:09 Ibuprofen 400 Mg Tablet PO 600 mg Q6HR PRN Administration PAIN Losartan Potassium 50 mg 09/18/20 09:00 09/19/20 08:47 Losartan 50 Mg Tablet PO 50 mg DAILY YANG Administration - Lab Result Fish Bone Diagrams: 09/19/20 04:40 09/19/20 04:40 - Additional Planning My Orders: My Active Orders 09/18/20 17:46 Message to Nursing [RC] ONCE 09/20/20 05:00 BMP - BASIC METABOLIC PANEL [CHEM] DAILYLAB CBC - COMP BLD CT W/AUTO DIFF [HEME] DAILYLAB 09/21/20 05:00 BMP - BASIC METABOLIC PANEL [CHEM] DAILYLAB CBC - COMP BLD CT W/AUTO DIFF [HEME] DAILYLAB 09/22/20 05:00 BMP - BASIC METABOLIC PANEL [CHEM] DAILYLAB CBC - COMP BLD CT W/AUTO DIFF [HEME] DAILYLAB 09/23/20 05:00 BMP - BASIC METABOLIC PANEL [CHEM] DAILYLAB CBC - COMP BLD CT W/AUTO DIFF [HEME] DAILYLAB Subjective - Subjective Patient Reports: Feeling Better Objective Vital Signs: Vital Signs - 24 hr 09/18/20 09/18/20 09/18/20 15:50 16:00 19:42 Temperature 36.9 C 37 C Heart Rate 84 Heart Rate [ 76 85 Brachial] Respiratory 20 16 20 Rate Blood Pressure 142/60 H 151/84 H [Right Brachial artery] O2 Saturation 99 96 09/18/20 09/19/20 09/19/20 23:49 04:57 07:31 Temperature 36.7 C 36.6 C 36.5 C Heart Rate Heart Rate [ 69 65 64 Brachial] Respiratory 17 17 18 Rate Blood Pressure 137/61 H 123/66 131/55 H [Right Brachial artery] O2 Saturation 94 94 97 09/19/20 09/19/20 08:44 12:01 Temperature 36.9 C Heart Rate Heart Rate [ 84 79 Brachial] Respiratory 18 Rate Blood Pressure 133/64 H 147/72 H [Right Brachial artery] O2 Saturation 96 Oxygen O2 Source Room air I&O (Last 24 Hrs): Intake and Output Totals x24h 09/17/20 09/18/20 09/19/20 23:59 23:59 23:59 Intake Total 1903.3 560 1200 Output Total 550 250 800 Balance 1353.3 310 400 General: Alert, Oriented x3, Cooperative, No acute distress HEENT: Atraumatic Neck: Supple Lymphatic: no adenopathy Neuro: Alert, Non Focal, Oriented Times 3 Cardiovascular: Regular rate, Normal S1, Normal S2 Respiratory: Chest non-tender, No respiratory distress, Breath sounds nml Abdomen: Normal bowel sounds, Soft, No tenderness Extremities: Normal pulses - Results Results: Laboratory Results WBC 7.9 x10^3/uL (4.8-10.8) 09/19/20 04:40 RBC 3.98 10^6/uL (4.20-5.40) L 09/19/20 04:40 Hgb 12.7 g/dL (12.0-16.0) 09/19/20 04:40 Hct 39.2 % (37.0-47.0) 09/19/20 04:40 MCV 98.5 fL (81.0-99.0) 09/19/20 04:40 MCH 31.9 pg (27.0-31.0) H 09/19/20 04:40 MCHC 32.4 g/dL (32.0-36.0) 09/19/20 04:40 RDW 12.6 % (12.0-15.0) 09/19/20 04:40 Plt Count 213 10^3/uL (130-450) 09/19/20 04:40 MPV 10.2 fL (7.9-10.8) 09/19/20 04:40 Neut # (Auto) 4.1 10^3/uL (1.5-6.6) 09/19/20 04:40 Lymph # (Auto) 2.7 10^3/uL (1.5-3.5) 09/19/20 04:40 [place] # (Auto) 0.6 10^3/uL (0.0-1.0) 09/19/20 04:40 Eos # (Auto) 0.4 10^3/uL (0.0-0.7) 09/19/20 04:40 Baso # (Auto) 0.1 10^3/uL (0.0-0.1) 09/19/20 04:40 Absolute Nucleated RBC 0.00 x10^3/uL 09/19/20 04:40 Nucleated RBC % 0.0 /100WBC 09/19/20 04:40 PT 11.8 secs (9.9-12.6) 09/16/20 21:54 INR 1.1 (0.8-1.2) 09/16/20 21:54 Sodium 141 mmol/L (135-145) 09/19/20 04:40 Potassium 3.4 mmol/L (3.5-5.0) L 09/19/20 04:40 Chloride 105 mmol/L (101-111) 09/19/20 04:40 Carbon Dioxide 24 mmol/L (21-32) 09/19/20 04:40 Anion Gap 12.0 (6-13) 09/19/20 04:40 BUN 12 mg/dL (6-20) 09/19/20 04:40 Creatinine 0.7 mg/dL (0.4-1.0) 09/19/20 04:40 Estimated GFR (MDRD) 83 (>89) L 09/19/20 04:40 Glucose 106 mg/dL (70-100) H 09/19/20 04:40 Calcium 9.1 mg/dL (8.5-10.3) 09/19/20 04:40 Nasal Adenovirus (PCR) NOT DETECTED 09/19/20 13:50 Nasal B. parapertussis DNA (PCR) NOT DETECTED 09/19/20 13:50 Nasal Coronavir 229E PCR NOT DETECTED 09/19/20 13:50 Nasal Coronavir HKU1 PCR NOT DETECTED 09/19/20 13:50 Nasal Coronavir NL63 PCR NOT DETECTED 09/19/20 13:50 Nasal Coronavir OC43 PCR NOT DETECTED 09/19/20 13:50 Nasal Enterovir/Rhinovir PCR NOT DETECTED 09/19/20 13:50 Nasal Influenza B PCR NOT DETECTED 09/19/20 13:50 Nasal Influenza A PCR NOT DETECTED 09/19/20 13:50 Nasal Parainfluen 1 PCR NOT DETECTED 09/19/20 13:50 Nasal Parainfluen 2 PCR NOT DETECTED 09/19/20 13:50 Nasal Parainfluen 3 PCR NOT DETECTED 09/19/20 13:50 Nasal Parainfluen 4 PCR NOT DETECTED 09/19/20 13:50 Nasal RSV (PCR) NOT DETECTED 09/19/20 13:50 Nasal B.pertussis DNA PCR NOT DETECTED 09/19/20 13:50 Nasal C.pneumoniae (PCR) NOT DETECTED 09/19/20 13:50 Geo Human Metapneumo PCR NOT DETECTED 09/19/20 13:50 Nasal M.pneumoniae (PCR) NOT DETECTED 09/19/20 13:50 Nasal SARS-CoV-2 (PCR) NOT DETECTED 09/19/20 13:50 Sepsis Event Note (H) - Evaluation Current Stage of Sepsis: Ruled out ABX Reporting Has patient been on IV antibiotics over the past 48 hours?: No Current Medications - Current Medications Current Medications: Active Medications Acetaminophen (Acetaminophen 500 Mg Tablet) 1,000 mg PO TID [facility] Last Admin: 09/19/20 13:35 Dose: Not Given Documented by: Hydrocodone Bitart/Acetaminophen (Hydrocod/Acetam 10 Mg/325 Mg Tablet) 1 tab PO Q4HR PRN PRN Reason: PAIN Last Admin: 09/19/20 13:33 Dose: 1 tab Documented by: Albuterol (Albuterol Neb 2.5 Mg/3 Ml) 2.5 mg INH RTQ4H PRN PRN Reason: Wheezing Aspirin (Aspirin Chew 81 Mg Tablet) 81 mg PO BID [facility] Last Admin: 09/19/20 08:47 Dose: 81 mg Documented by: Cyclobenzaprine HCl (Cyclobenzaprine 10 Mg Tablet) 10 mg PO TID PRN PRN Reason: Spasms Last Admin: 09/18/20 21:16 Dose: 5 mg Documented by: Docusate Sodium (Docusate Sodium 250 Mg Capsule) 250 - 500 mg PO BID [facility] Hydrochlorothiazide (Hydrochlorothiazide 25 Mg Tablet) 25 mg PO DAILY [facility] Last Admin: 09/19/20 08:47 Dose: 25 mg Documented by: Hydromorphone HCl (Hydromorphone 0.5 Mg/0.5 Ml Syringe) 0.5 mg IVP Q1H PRN PRN Reason: PAIN Ibuprofen (Ibuprofen 400 Mg Tablet) 600 mg PO Q6HR PRN PRN Reason: PAIN Last Admin: 09/19/20 00:09 Dose: 600 mg Documented by: Losartan Potassium (Losartan 50 Mg Tablet) 50 mg PO DAILY [facility] Last Admin: 09/19/20 08:47 Dose: 50 mg Documented by: Ondansetron HCl (Ondansetron 4 Mg/2 Ml Vial) 4 mg IVP Q6H PRN PRN Reason: Nausea / Vomiting Polyethylene Glycol (Polyethylene Glycol 3350 17 Gm Packet) 17 gm PO DAILY [facility] Senna (Senna 8.6 Mg Tablet) 8.6 - 17.2 mg PO BID YANG Albuterol Sulfate [Proair Hfa Inhaler] 2 puffs INH ONCE PRN 09/16/20 Mometasone Furoate [Asmanex Hfa] 2 puffs INH BID 09/16/20 Valsartan/Hydrochlorothiazide [Diovan Hct 160-25 mg Tablet] 1 tab PO DAILY 09/16/20 Zolpidem [Ambien] 2.5 - 5 mg PO QPM PRN 09/17/20
[2020-09-19] MEDS: SENNA 8.6 MG TABLET PO SCH ×2 (17:19→21:16)
[2020-09-19] MEDS: DOCUSATE SODIUM 250 MG CAPSULE PO SCH ×2 (17:19→21:15)
[2020-09-20] MEDS: HYDROcod/ACETAM 10 MG/325 MG TABLET PO PRN ×5 (01:34→21:00)
[2020-09-20 04:44] LABS: BASOPHILS % (AUTO) 0.6 %; EOSINOPHILS # (AUTO) 0.4 10^3/uL (0.0-0.7); EOSINOPHILS % (AUTO) 5.6 %; HCT - HEMATOCRIT 39.2 % (37.0-47.0); LYMPHOCYTES # (AUTO) 2.1 10^3/uL (1.5-3.5); LYMPHOCYTES % (AUTO) 30.6 %; MEAN CORPUSCULAR HEMOGLOBIN 32.2 pg (27.0-31.0); MEAN CORPUSCULAR HGB CONC 33.2 g/dL (32.0-36.0); MEAN PLATELET VOLUME 10.1 fL (7.9-10.8); MONOCYTES # (AUTO) 0.6 10^3/uL (0.0-1.0); MONOCYTES % (AUTO) 8.3 %; NEUTROPHILS # (AUTO) 3.8 10^3/uL (1.5-6.6); NEUTROPHILS % (AUTO) 54.6 %; PLT - PLATELET COUNT 227 10^3/uL (130-450); RED BLOOD COUNT 4.04 10^6/uL (4.20-5.40); RED CELL DISTRIBUTION WIDTH 12.5 % (12.0-15.0)
[2020-09-20 04:53] LABS: CREATININE 0.6 mg/dL (0.4-1.0); POTASSIUM 3.5 mmol/L (3.5-5.0)
[2020-09-20] MEDS: ACETAMINOPHEN 500 MG TABLET PO SCH ×3 (05:49→21:03)
[2020-09-20] MEDS: hydroCHLOROthiazide 25 MG TABLET PO SCH (08:56)
[2020-09-20] MEDS: DOCUSATE SODIUM 250 MG CAPSULE PO SCH ×2 (08:56→21:02)
[2020-09-20] MEDS: SENNA 8.6 MG TABLET PO SCH ×2 (08:56→21:01)
[2020-09-20] MEDS: ASPIRIN CHEW 81 MG TABLET PO SCH ×2 (08:56→21:02)
[2020-09-20] MEDS: LOSARTAN 50 MG TABLET PO SCH (08:56)
[2020-09-20] MEDS: polyethylene glycoL 3350 17 GM PACKET PO SCH (08:57)
[2020-09-20] MEDS: IBUPROFEN 400 MG TABLET PO PRN ×2 (09:02→19:40)
--- NOTE | 2020-09-20 14:07 | PROVIDER PROGRESS NOTE ---
Assessment/Plan - Problem List (1) Fracture of right tibial plateau Qualifiers: Encounter type: initial encounter Fracture type: closed Qualified Code(s): S82.141A - Displaced bicondylar fracture of right tibia, initial encounter for closed fracture Assessment/Plan: 09/20 pt is pending for her insurance approve for d/c to SNF. pain is good controlled. continue PT/OT, Aspirin twice daily for DVT prophylaxis per surgeon, continue consult with licensed clinical social worker for safely disposition. 09/19 today pt's pain is better controlled. Continue to have PT and OT, Aspirin twice daily for DVT prophylaxis, Consult with social work, Patient is a pending for discharge to SNF. add Covid 19 test for d/c pt is nonoperative now and possible postponed surgery plan which was already the agreement between pt and orthopedics surgeon. Aspirin twice daily for DVT prophylaxis as surgeon recommended. pain control with Ibuprofen and Toradol, and Oxycodon ER/[place] as needed. Patient has been feared to take opiates pain medication, we will encourage pt take pain medications as needed at this point. Continue PT and OT, Continue consult with social work for discharge to SNF With her . (2) Hypertension Conclusion/Plan: 09/19 stable. Patient has a history of hypertension. Patient already resumed her home blood pressure medicine. Patient has no orthostatic hypotension in the assessment. Continue vital signs monitor (3) Asthma Conclusion/Plan: stable, no any acute complaint, will be resume home albuterol INH as needed - Current Meds Current Meds: Current Medications Generic Name Dose Route Start Last Admin Trade Name Freq PRN Reason Stop Dose Admin Acetaminophen 1,000 mg 09/17/20 22:00 09/20/20 13:34 Acetaminophen 500 Mg Tablet PO 1,000 mg TID YANG Administration Hydrocodone Bitart/Acetaminophen 1 tab 09/17/20 09:24 09/20/20 10:38 Hydrocod/Acetam 10 Mg/325 Mg Tablet PO 0.5 tab Q4HR PRN Administration PAIN Aspirin 81 mg 09/17/20 21:00 09/20/20 08:56 Aspirin Chew 81 Mg Tablet PO 81 mg BID YANG Administration Cyclobenzaprine HCl 10 mg 09/17/20 20:05 09/18/20 21:16 Cyclobenzaprine 10 Mg Tablet PO 5 mg TID PRN Administration Spasms Docusate Sodium 250 - 500 mg 09/19/20 16:21 09/20/20 08:56 Docusate Sodium 250 Mg Capsule PO 250 mg BID YANG Administration Hydrochlorothiazide 25 mg 09/18/20 09:00 09/20/20 08:56 Hydrochlorothiazide 25 Mg Tablet PO 25 mg DAILY YANG Administration Ibuprofen 600 mg 09/17/20 20:05 09/20/20 09:02 Ibuprofen 400 Mg Tablet PO 600 mg Q6HR PRN Administration PAIN Losartan Potassium 50 mg 09/18/20 09:00 09/20/20 08:56 Losartan 50 Mg Tablet PO 50 mg DAILY YANG Administration Polyethylene Glycol 17 gm 09/20/20 09:00 09/20/20 08:57 Polyethylene Glycol 3350 17 Gm Packet PO 17 gm DAILY YANG Administration Senna 8.6 - 17.2 mg 09/19/20 16:22 09/20/20 08:56 Senna 8.6 Mg Tablet PO 8.6 mg BID YANG Administration - Lab Result Fish Bone Diagrams: 09/20/20 04:24 09/20/20 04:24 - Additional Planning My Orders: My Active Orders 09/21/20 05:00 BMP - BASIC METABOLIC PANEL [CHEM] DAILYLAB CBC - COMP BLD CT W/AUTO DIFF [HEME] DAILYLAB 09/22/20 05:00 BMP - BASIC METABOLIC PANEL [CHEM] DAILYLAB CBC - COMP BLD CT W/AUTO DIFF [HEME] DAILYLAB 09/23/20 05:00 BMP - BASIC METABOLIC PANEL [CHEM] DAILYLAB CBC - COMP BLD CT W/AUTO DIFF [HEME] DAILYLAB Subjective - Subjective Patient Reports: Feeling Better Objective Vital Signs: Vital Signs - 24 hr 09/19/20 09/19/20 09/20/20 16:08 21:51 01:19 Temperature 36.6 C 37 C 36.6 C Heart Rate [ 67 87 79 Brachial] Respiratory 16 16 18 Rate Blood Pressure 136/70 H 122/54 L 147/73 H [Right Brachial artery] O2 Saturation 98 95 98 09/20/20 09/20/20 09/20/20 05:36 07:50 11:14 Temperature 36.6 C 36.7 C Heart Rate [ 66 83 Brachial] Respiratory 18 18 Rate Blood Pressure 147/79 H 137/72 H 157/70 H [Right Brachial artery] O2 Saturation 97 97 Oxygen O2 Source Room air I&O (Last 24 Hrs): Intake and Output Totals x24h 09/18/20 09/19/20 09/20/20 23:59 23:59 23:59 Intake Total 560 1680 610 Output Total 250 800 Balance 310 880 610 General: Alert, Oriented x3, Cooperative, No acute distress HEENT: Atraumatic, PERRLA Neck: Supple Lymphatic: no adenopathy Neuro: Alert, Non Focal, Oriented Times 3 Cardiovascular: Regular rate, Normal S1, Normal S2 Respiratory: Chest non-tender, No respiratory distress, Breath sounds nml Abdomen: Normal bowel sounds, Soft, No tenderness Extremities: Normal pulses - Results Results: Laboratory Results WBC 7.0 x10^3/uL (4.8-10.8) 09/20/20 04:24 RBC 4.04 10^6/uL (4.20-5.40) L 09/20/20 04:24 Hgb 13.0 g/dL (12.0-16.0) 09/20/20 04:24 Hct 39.2 % (37.0-47.0) 09/20/20 04:24 MCV 97.0 fL (81.0-99.0) 09/20/20 04:24 MCH 32.2 pg (27.0-31.0) H 09/20/20 04:24 MCHC 33.2 g/dL (32.0-36.0) 09/20/20 04:24 RDW 12.5 % (12.0-15.0) 09/20/20 04:24 Plt Count 227 10^3/uL (130-450) 09/20/20 04:24 MPV 10.1 fL (7.9-10.8) 09/20/20 04:24 Neut # (Auto) 3.8 10^3/uL (1.5-6.6) 09/20/20 04:24 Lymph # (Auto) 2.1 10^3/uL (1.5-3.5) 09/20/20 04:24 [place] # (Auto) 0.6 10^3/uL (0.0-1.0) 09/20/20 04:24 Eos # (Auto) 0.4 10^3/uL (0.0-0.7) 09/20/20 04:24 Baso # (Auto) 0.0 10^3/uL (0.0-0.1) 09/20/20 04:24 Absolute Nucleated RBC 0.00 x10^3/uL 09/20/20 04:24 Nucleated RBC % 0.0 /100WBC 09/20/20 04:24 PT 11.8 secs (9.9-12.6) 09/16/20 21:54 INR 1.1 (0.8-1.2) 09/16/20 21:54 Sodium 141 mmol/L (135-145) 09/20/20 04:24 Potassium 3.5 mmol/L (3.5-5.0) 09/20/20 04:24 Chloride 103 mmol/L (101-111) 09/20/20 04:24 Carbon Dioxide 26 mmol/L (21-32) 09/20/20 04:24 Anion Gap 12.0 (6-13) 09/20/20 04:24 BUN 15 mg/dL (6-20) 09/20/20 04:24 Creatinine 0.6 mg/dL (0.4-1.0) 09/20/20 04:24 Estimated GFR (MDRD) 99 (>89) 09/20/20 04:24 Glucose 106 mg/dL (70-100) H 09/20/20 04:24 Calcium 9.0 mg/dL (8.5-10.3) 09/20/20 04:24 Nasal Adenovirus (PCR) NOT DETECTED 09/19/20 13:50 Nasal B. parapertussis DNA (PCR) NOT DETECTED 09/19/20 13:50 Nasal Coronavir 229E PCR NOT DETECTED 09/19/20 13:50 Nasal Coronavir HKU1 PCR NOT DETECTED 09/19/20 13:50 Nasal Coronavir NL63 PCR NOT DETECTED 09/19/20 13:50 Nasal Coronavir OC43 PCR NOT DETECTED 09/19/20 13:50 Nasal Enterovir/Rhinovir PCR NOT DETECTED 09/19/20 13:50 Nasal Influenza B PCR NOT DETECTED 09/19/20 13:50 Nasal Influenza A PCR NOT DETECTED 09/19/20 13:50 Nasal Parainfluen 1 PCR NOT DETECTED 09/19/20 13:50 Nasal Parainfluen 2 PCR NOT DETECTED 09/19/20 13:50 Nasal Parainfluen 3 PCR NOT DETECTED 09/19/20 13:50 Nasal Parainfluen 4 PCR NOT DETECTED 09/19/20 13:50 Nasal RSV (PCR) NOT DETECTED 09/19/20 13:50 Nasal B.pertussis DNA PCR NOT DETECTED 09/19/20 13:50 Nasal C.pneumoniae (PCR) NOT DETECTED 09/19/20 13:50 Geo Human Metapneumo PCR NOT DETECTED 09/19/20 13:50 Nasal M.pneumoniae (PCR) NOT DETECTED 09/19/20 13:50 Nasal SARS-CoV-2 (PCR) NOT DETECTED 09/19/20 13:50 Sepsis Event Note (H) - Evaluation Current Stage of Sepsis: Ruled out ABX Reporting Has patient been on IV antibiotics over the past 48 hours?: No Current Medications - Current Medications Current Medications: Active Medications Acetaminophen (Acetaminophen 500 Mg Tablet) 1,000 mg PO TID [facility] Last Admin: 09/20/20 13:34 Dose: 1,000 mg Documented by: Hydrocodone Bitart/Acetaminophen (Hydrocod/Acetam 10 Mg/325 Mg Tablet) 1 tab PO Q4HR PRN PRN Reason: PAIN Last Admin: 09/20/20 10:38 Dose: 0.5 tab Documented by: Albuterol (Albuterol Neb 2.5 Mg/3 Ml) 2.5 mg INH RTQ4H PRN PRN Reason: Wheezing Aspirin (Aspirin Chew 81 Mg Tablet) 81 mg PO BID [facility] Last Admin: 09/20/20 08:56 Dose: 81 mg Documented by: Cyclobenzaprine HCl (Cyclobenzaprine 10 Mg Tablet) 10 mg PO TID PRN PRN Reason: Spasms Last Admin: 09/18/20 21:16 Dose: 5 mg Documented by: Docusate Sodium (Docusate Sodium 250 Mg Capsule) 250 - 500 mg PO BID [facility] Last Admin: 09/20/20 08:56 Dose: 250 mg Documented by: Hydrochlorothiazide (Hydrochlorothiazide 25 Mg Tablet) 25 mg PO DAILY [facility] Last Admin: 09/20/20 08:56 Dose: 25 mg Documented by: Hydromorphone HCl (Hydromorphone 0.5 Mg/0.5 Ml Syringe) 0.5 mg IVP Q1H PRN PRN Reason: PAIN Ibuprofen (Ibuprofen 400 Mg Tablet) 600 mg PO Q6HR PRN PRN Reason: PAIN Last Admin: 09/20/20 09:02 Dose: 600 mg Documented by: Losartan Potassium (Losartan 50 Mg Tablet) 50 mg PO DAILY [facility] Last Admin: 09/20/20 08:56 Dose: 50 mg Documented by: Ondansetron HCl (Ondansetron 4 Mg/2 Ml Vial) 4 mg IVP Q6H PRN PRN Reason: Nausea / Vomiting Polyethylene Glycol (Polyethylene Glycol 3350 17 Gm Packet) 17 gm PO DAILY [facility] Last Admin: 09/20/20 08:57 Dose: 17 gm Documented by: Senna (Senna 8.6 Mg Tablet) 8.6 - 17.2 mg PO BID [facility] Last Admin: 09/20/20 08:56 Dose: 8.6 mg Documented by: Albuterol Sulfate [Proair Hfa Inhaler] 2 puffs INH ONCE PRN 09/16/20 Mometasone Furoate [Asmanex Hfa] 2 puffs INH BID 09/16/20 Valsartan/Hydrochlorothiazide [Diovan Hct 160-25 mg Tablet] 1 tab PO DAILY 09/16/20 Zolpidem [Ambien] 2.5 - 5 mg PO QPM PRN 09/17/20
[2020-09-20] MEDS: CYCLOBENZAPRINE 10 MG TABLET PO PRN (19:40)
[2020-09-21] MEDS: ACETAMINOPHEN 500 MG TABLET PO SCH ×3 (05:12→21:16)
[2020-09-21 05:13] LABS: BASOPHILS # (AUTO) 0.1 10^3/uL (0.0-0.1); BASOPHILS % (AUTO) 1.1 %; EOSINOPHILS # (AUTO) 0.4 10^3/uL (0.0-0.7); EOSINOPHILS % (AUTO) 5.3 %; HCT - HEMATOCRIT 38.8 % (37.0-47.0); HGB - HEMOGLOBIN 12.8 g/dL (12.0-16.0); LYMPHOCYTES # (AUTO) 2.6 10^3/uL (1.5-3.5); MEAN CORPUSCULAR HEMOGLOBIN 32.4 pg (27.0-31.0); MEAN CORPUSCULAR VOLUME 98.2 fL (81.0-99.0); MEAN PLATELET VOLUME 10.2 fL (7.9-10.8); MONOCYTES # (AUTO) 0.6 10^3/uL (0.0-1.0); MONOCYTES % (AUTO) 7.5 %; NEUTROPHILS # (AUTO) 3.9 10^3/uL (1.5-6.6); NEUTROPHILS % (AUTO) 51.8 %; PLT - PLATELET COUNT 224 10^3/uL (130-450); RED BLOOD COUNT 3.95 10^6/uL (4.20-5.40); RED CELL DISTRIBUTION WIDTH 12.6 % (12.0-15.0); WHITE BLOOD COUNT 7.5 x10^3/uL (4.8-10.8)
[2020-09-21] MEDS: HYDROcod/ACETAM 10 MG/325 MG TABLET PO PRN ×2 (05:13→09:39)
[2020-09-21 05:22] LABS: CALCIUM 9.2 mg/dL (8.5-10.3); CREATININE 0.6 mg/dL (0.4-1.0); POTASSIUM 3.3 mmol/L (3.5-5.0)
--- NOTE | 2020-09-21 07:08 | PROVIDER PROGRESS NOTE ---
Subjective - General Admit Date: 09/18/20 - Review of Systems Wound/Incisions: positive: Dressing dry and intact General: negative: Fever Pulmonary: positive: No symptoms Cardiovascular: positive: No symptoms Musculoskeletal: positive: Joint pain, Joint swelling - Other Other Information/Narrative: Patient is a 70-year-old female with a split depression tibial plateau fracture being treated nonoperatively. Patient plans to be discharged to a long-term facility today, [facility] for gait training and physical therapy. Patient's current plan is nonweightbearing, PT/OT and to come to the orthopedic clinic next week to get fitted for a hinged knee brace so she can begin nonweightbearing gentle range of motion. Objective - Patient Data Vital Signs: Vital Signs x48h Temp Pulse Resp BP Pulse Ox 09/21/20 05:00 37.1 C 80 16 139/60 H 95 09/21/20 00:32 36.5 C 70 16 130/62 93 Intake & Output: Intake and Output Totals x24h 09/19/20 09/20/20 09/21/20 23:59 23:59 23:59 Intake Total 1680 710 100 Output Total 800 350 Balance 880 710 -250 - Lab Results Lab Results: 09/21/20 04:51 09/21/20 04:51 Other Lab Results: Lab Results x24hrs 09/21/20 09/21/20 Range/Units 04:51 04:51 WBC 7.5 (4.8-10.8) x10^3/uL RBC 3.95 L (4.20-5.40) 10^6/uL Hgb 12.8 (12.0-16.0) g/dL Hct 38.8 (37.0-47.0) % MCV 98.2 (81.0-99.0) fL MCH 32.4 H (27.0-31.0) pg MCHC 33.0 (32.0-36.0) g/dL RDW 12.6 (12.0-15.0) % Plt Count 224 (130-450) 10^3/uL MPV 10.2 (7.9-10.8) fL Neut # (Auto) 3.9 (1.5-6.6) 10^3/uL Lymph # (Auto) 2.6 (1.5-3.5) 10^3/uL [place] # (Auto) 0.6 (0.0-1.0) 10^3/uL Eos # (Auto) 0.4 (0.0-0.7) 10^3/uL Baso # (Auto) 0.1 (0.0-0.1) 10^3/uL Absolute Nucleated RBC 0.00 x10^3/uL Nucleated RBC % 0.0 /100WBC Sodium 140 (135-145) mmol/L Potassium 3.3 L (3.5-5.0) mmol/L Chloride 103 (101-111) mmol/L Carbon Dioxide 25 (21-32) mmol/L Anion Gap 12.0 (6-13) BUN 18 (6-20) mg/dL Creatinine 0.6 (0.4-1.0) mg/dL Estimated GFR (MDRD) 99 (>89) Glucose 103 H (70-100) mg/dL Calcium 9.2 (8.5-10.3) mg/dL - Imaging Results Radiology Imaging: positive: EMP read indepedently - Current Medications Current Medications: Current Medications Generic Name Dose Route Start Last Admin Trade Name Freq PRN Reason Stop Dose Admin Acetaminophen 1,000 mg 09/17/20 22:00 09/21/20 05:12 Acetaminophen 500 Mg Tablet PO 500 mg TID YANG Administration Hydrocodone Bitart/Acetaminophen 1 tab 09/17/20 09:24 09/21/20 05:13 Hydrocod/Acetam 10 Mg/325 Mg Tablet PO 1 tab Q4HR PRN Administration PAIN Aspirin 81 mg 09/17/20 21:00 09/20/20 21:02 Aspirin Chew 81 Mg Tablet PO 81 mg BID YANG Administration Cyclobenzaprine HCl 10 mg 09/17/20 20:05 09/20/20 19:40 Cyclobenzaprine 10 Mg Tablet PO 5 mg TID PRN Administration Spasms Docusate Sodium 250 - 500 mg 09/19/20 16:21 09/20/20 21:02 Docusate Sodium 250 Mg Capsule PO 500 mg BID YANG Administration Hydrochlorothiazide 25 mg 09/18/20 09:00 09/20/20 08:56 Hydrochlorothiazide 25 Mg Tablet PO 25 mg DAILY YANG Administration Ibuprofen 600 mg 09/17/20 20:05 09/20/20 19:40 Ibuprofen 400 Mg Tablet PO 600 mg Q6HR PRN Administration PAIN Losartan Potassium 50 mg 09/18/20 09:00 09/20/20 08:56 Losartan 50 Mg Tablet PO 50 mg DAILY YANG Administration Polyethylene Glycol 17 gm 09/20/20 09:00 09/20/20 08:57 Polyethylene Glycol 3350 17 Gm Packet PO 17 gm DAILY YANG Administration Senna 8.6 - 17.2 mg 09/19/20 16:22 09/20/20 21:01 Senna 8.6 Mg Tablet PO 8.6 mg BID YANG Administration - Physical Exam Wound/Incisions: positive: Dressing dry and intact Extremities: positive: Joint swelling (Pain is well controlled) Neurologic/Psychiatric: positive: Oriented x3 Impression/Plan - Problem List Problem List: Patient is a 70-year-old female with a split depression tibial plateau fracture being treated nonoperatively. Patient is cleared for discharge to long-term facility, [facility]. Our clinic will be reaching out to [facility] to schedule the patient next week to get fitted for a hinged knee brace. Patient's to remain nonweightbearing. Patient can work on gentle range of motion with PT/OT at [facility] After supportive brace is applied
[2020-09-21] MEDS: polyethylene glycoL 3350 17 GM PACKET PO SCH (08:44)
[2020-09-21] MEDS: SENNA 8.6 MG TABLET PO SCH ×2 (08:44→20:00)
[2020-09-21] MEDS: hydroCHLOROthiazide 25 MG TABLET PO SCH (08:44)
[2020-09-21] MEDS: ASPIRIN CHEW 81 MG TABLET PO SCH ×2 (08:44→21:17)
[2020-09-21] MEDS: DOCUSATE SODIUM 250 MG CAPSULE PO SCH ×2 (08:44→20:00)
[2020-09-21] MEDS: LOSARTAN 50 MG TABLET PO SCH (08:45)
[2020-09-21] MEDS ORDERED: POTASSIUM CHLORIDE 20 MEQ TABLET PO ONE (09:19)
[2020-09-21] MEDS: IBUPROFEN 400 MG TABLET PO PRN (12:36)
[2020-09-21] MEDS: oxyCODONE 5 MG TABLET PO PRN (16:27)
--- NOTE | 2020-09-21 17:18 | PROVIDER PROGRESS NOTE ---
Assessment/Plan - Problem List (1) Fracture of right tibial plateau Qualifiers: Encounter type: initial encounter Fracture type: closed Qualified Code(s): S82.141A - Displaced bicondylar fracture of right tibia, initial encounter for closed fracture Assessment/Plan: She is in her cast, ambulating some. She still has pain that requires narcotics every 4 hours and gets intermittent Tylenol and Motrin as well. She asked for [place] to be switched to oxycodone to see if it had better management. She reports however that narcotics make her dizzy and foggy and sometimes needs half the dose. She will need physical therapy at [facility]. The disposition is still being arranged by foster care social worker (2) Constipation due to pain medication Assessment/Plan: Will escalate bowel protocol, she does not wish enema or suppository yet however (3) Fall from ground level Assessment/Plan: As per Hx (4) Hypertension Assessment/Plan: BP controlled on current meds - Current Meds Current Meds: Current Medications Generic Name Dose Route Start Last Admin Trade Name [place]q PRN Reason Stop Dose Admin Acetaminophen 1,000 mg 09/17/20 22:00 09/21/20 13:46 Acetaminophen 500 Mg Tablet PO 1,000 mg TID YANG Administration Aspirin 81 mg 09/17/20 21:00 09/21/20 08:44 Aspirin Chew 81 Mg Tablet PO 81 mg BID YANG Administration Cyclobenzaprine HCl 10 mg 09/17/20 20:05 09/20/20 19:40 Cyclobenzaprine 10 Mg Tablet PO 5 mg TID PRN Administration Spasms Docusate Sodium 250 - 500 mg 09/19/20 16:21 09/21/20 08:44 Docusate Sodium 250 Mg Capsule PO 250 mg BID YANG Administration Hydrochlorothiazide 25 mg 09/18/20 09:00 09/21/20 08:44 Hydrochlorothiazide 25 Mg Tablet PO 25 mg DAILY YANG Administration Ibuprofen 600 mg 09/17/20 20:05 09/21/20 12:36 Ibuprofen 400 Mg Tablet PO 600 mg Q6HR PRN Administration PAIN Losartan Potassium 50 mg 09/18/20 09:00 09/21/20 08:45 Losartan 50 Mg Tablet PO 50 mg DAILY YANG Administration Oxycodone HCl 5 mg 09/21/20 14:32 09/21/20 16:27 Oxycodone 5 Mg Tablet PO 5 mg Q4HR PRN Administration PAIN Polyethylene Glycol 17 gm 09/20/20 09:00 09/21/20 08:44 Polyethylene Glycol 3350 17 Gm Packet PO 17 gm DAILY YANG Administration Senna 8.6 - 17.2 mg 09/19/20 16:22 09/21/20 08:44 Senna 8.6 Mg Tablet PO 17.2 mg BID YANG Administration - Lab Result Fish Bone Diagrams: 09/21/20 04:51 09/21/20 04:51 - Additional Planning My Orders: My Active Orders 09/21/20 14:32 oxyCODONE [Roxicodone] 5 mg PO Q4HR PRN Subjective - Subjective Patient Reports: Pain Objective Vital Signs: Vital Signs - 24 hr 09/20/20 09/21/20 09/21/20 20:14 00:32 05:00 Temperature 37.5 C 36.5 C 37.1 C Heart Rate Heart Rate [ 77 70 80 Brachial] Respiratory 16 16 16 Rate Blood Pressure 131/59 H 130/62 139/60 H [Right Brachial artery] O2 Saturation 96 93 95 09/21/20 09/21/20 09/21/20 07:54 10:53 11:16 Temperature 36.4 C L 36.4 C L Heart Rate 78 78 Heart Rate [ 74 Brachial] Respiratory 18 16 16 Rate Blood Pressure 140/76 H [Right Brachial artery] O2 Saturation 96 95 09/21/20 09/21/20 13:00 16:20 Temperature 36.9 C 37.3 C Heart Rate Heart Rate [ 83 89 Brachial] Respiratory 18 18 Rate Blood Pressure 133/79 H 135/78 H [Right Brachial artery] O2 Saturation 99 96 Oxygen O2 Source Room air I&O (Last 24 Hrs): Intake and Output Totals x24h 09/19/20 09/20/20 09/21/20 23:59 23:59 23:59 Intake Total 1680 710 710 Output Total 800 350 Balance 880 710 360 General: Alert, Oriented x3 HEENT: Mucous membr. moist/pink Neck: Supple, No JVD Neuro: Alert, Non Focal Cardiovascular: Regular rate Respiratory: No respiratory distress Abdomen: Soft Extremities: Other (R leg in cast and wrapped) - Results Results: Laboratory Results WBC 7.5 x10^3/uL (4.8-10.8) 09/21/20 04:51 RBC 3.95 10^6/uL (4.20-5.40) L 09/21/20 04:51 Hgb 12.8 g/dL (12.0-16.0) 09/21/20 04:51 Hct 38.8 % (37.0-47.0) 09/21/20 04:51 MCV 98.2 fL (81.0-99.0) 09/21/20 04:51 MCH 32.4 pg (27.0-31.0) H 09/21/20 04:51 MCHC 33.0 g/dL (32.0-36.0) 09/21/20 04:51 RDW 12.6 % (12.0-15.0) 09/21/20 04:51 Plt Count 224 10^3/uL (130-450) 09/21/20 04:51 MPV 10.2 fL (7.9-10.8) 09/21/20 04:51 Neut # (Auto) 3.9 10^3/uL (1.5-6.6) 09/21/20 04:51 Lymph # (Auto) 2.6 10^3/uL (1.5-3.5) 09/21/20 04:51 [place] # (Auto) 0.6 10^3/uL (0.0-1.0) 09/21/20 04:51 Eos # (Auto) 0.4 10^3/uL (0.0-0.7) 09/21/20 04:51 Baso # (Auto) 0.1 10^3/uL (0.0-0.1) 09/21/20 04:51 Absolute Nucleated RBC 0.00 x10^3/uL 09/21/20 04:51 Nucleated RBC % 0.0 /100WBC 09/21/20 04:51 PT 11.8 secs (9.9-12.6) 09/16/20 21:54 INR 1.1 (0.8-1.2) 09/16/20 21:54 Sodium 140 mmol/L (135-145) 09/21/20 04:51 Potassium 3.3 mmol/L (3.5-5.0) L 09/21/20 04:51 Chloride 103 mmol/L (101-111) 09/21/20 04:51 Carbon Dioxide 25 mmol/L (21-32) 09/21/20 04:51 Anion Gap 12.0 (6-13) 09/21/20 04:51 BUN 18 mg/dL (6-20) 09/21/20 04:51 Creatinine 0.6 mg/dL (0.4-1.0) 09/21/20 04:51 Estimated GFR (MDRD) 99 (>89) 09/21/20 04:51 Glucose 103 mg/dL (70-100) H 09/21/20 04:51 Calcium 9.2 mg/dL (8.5-10.3) 09/21/20 04:51 Nasal Adenovirus (PCR) NOT DETECTED 09/19/20 13:50 Nasal B. parapertussis DNA (PCR) NOT DETECTED 09/19/20 13:50 Nasal Coronavir 229E PCR NOT DETECTED 09/19/20 13:50 Nasal Coronavir HKU1 PCR NOT DETECTED 09/19/20 13:50 Nasal Coronavir NL63 PCR NOT DETECTED 09/19/20 13:50 Nasal Coronavir OC43 PCR NOT DETECTED 09/19/20 13:50 Nasal Enterovir/Rhinovir PCR NOT DETECTED 09/19/20 13:50 Nasal Influenza B PCR NOT DETECTED 09/19/20 13:50 Nasal Influenza A PCR NOT DETECTED 09/19/20 13:50 Nasal Parainfluen 1 PCR NOT DETECTED 09/19/20 13:50 Nasal Parainfluen 2 PCR NOT DETECTED 09/19/20 13:50 Nasal Parainfluen 3 PCR NOT DETECTED 09/19/20 13:50 Nasal Parainfluen 4 PCR NOT DETECTED 09/19/20 13:50 Nasal RSV (PCR) NOT DETECTED 09/19/20 13:50 Nasal B.pertussis DNA PCR NOT DETECTED 09/19/20 13:50 Nasal C.pneumoniae (PCR) NOT DETECTED 09/19/20 13:50 Geo Human Metapneumo PCR NOT DETECTED 09/19/20 13:50 Nasal M.pneumoniae (PCR) NOT DETECTED 09/19/20 13:50 Nasal SARS-CoV-2 (PCR) NOT DETECTED 09/19/20 13:50 Sepsis Event Note (H) - Evaluation Current Stage of Sepsis: Ruled out
[2020-09-21] MEDS ORDERED: MAGNESIUM CITRATE 296 ML BOTTLE PO ONE (18:13)
[2020-09-22] MEDS: IBUPROFEN 400 MG TABLET PO PRN ×3 (00:24→17:13)
[2020-09-22] MEDS: DOCUSATE SODIUM 250 MG CAPSULE PO SCH ×2 (05:20→21:24)
[2020-09-22] MEDS: ACETAMINOPHEN 500 MG TABLET PO SCH ×3 (05:21→21:23)
[2020-09-22 05:54] LABS: BASOPHILS # (AUTO) 0.1 10^3/uL (0.0-0.1); BASOPHILS % (AUTO) 0.6 %; EOSINOPHILS # (AUTO) 0.3 10^3/uL (0.0-0.7); EOSINOPHILS % (AUTO) 3.7 %; HCT - HEMATOCRIT 40.6 % (37.0-47.0); HGB - HEMOGLOBIN 13.3 g/dL (12.0-16.0); LYMPHOCYTES # (AUTO) 1.7 10^3/uL (1.5-3.5); MEAN CORPUSCULAR HGB CONC 32.8 g/dL (32.0-36.0); MEAN CORPUSCULAR VOLUME 97.8 fL (81.0-99.0); MEAN PLATELET VOLUME 9.8 fL (7.9-10.8); MONOCYTES # (AUTO) 0.6 10^3/uL (0.0-1.0); MONOCYTES % (AUTO) 7.5 %; NEUTROPHILS # (AUTO) 5.8 10^3/uL (1.5-6.6); NEUTROPHILS % (AUTO) 67.9 %; PLT - PLATELET COUNT 260 10^3/uL (130-450); RED BLOOD COUNT 4.15 10^6/uL (4.20-5.40); RED CELL DISTRIBUTION WIDTH 12.7 % (12.0-15.0); WHITE BLOOD COUNT 8.6 x10^3/uL (4.8-10.8)
[2020-09-22 06:05] LABS: CALCIUM 9.4 mg/dL (8.5-10.3); CREATININE 0.6 mg/dL (0.4-1.0); POTASSIUM 3.4 mmol/L (3.5-5.0)
[2020-09-22] MEDS ORDERED: POTASSIUM CHLORIDE 20 MEQ TABLET PO ONE (08:00)
[2020-09-22] MEDS: ASPIRIN CHEW 81 MG TABLET PO SCH ×2 (09:44→21:23)
[2020-09-22] MEDS: hydroCHLOROthiazide 25 MG TABLET PO SCH (09:44)
[2020-09-22] MEDS: LOSARTAN 50 MG TABLET PO SCH (09:44)
[2020-09-22] MEDS: SENNA 8.6 MG TABLET PO SCH ×2 (09:47→21:25)
[2020-09-22] MEDS: polyethylene glycoL 3350 17 GM PACKET PO SCH (09:47)
[2020-09-22 12:42] LABS: CORONAVIRUS 229E-RESP PCR NOT DETECTED; CORONAVIRUS HKU1-RESP PCR NOT DETECTED; CORONAVIRUS NL63-RESP PCR NOT DETECTED; CORONAVIRUS OC43-RESP PCR NOT DETECTED; HUMAN METAPNEUMOVIRUS NOT DETECTED; INFLUENZA A- RESP PCR PANEL NOT DETECTED; RHINOVIRUS/ENTEROVIRUS NOT DETECTED; SARS-CoV-2 -RESP PCR PANEL NOT DETECTED
[2020-09-22 12:43] LABS: B. PARAPERTUSSIS- RESP PCR PAN NOT DETECTED; B. PERTUSSIS- RESP PCR PANEL NOT DETECTED; C. PNEUMONIAE- RESP PCR PANEL NOT DETECTED; INFLUENZA B - RESP PCR PANEL NOT DETECTED; M. PNEUMONIAE- RESP PCR PANEL NOT DETECTED; PARAINFLUENZA VIRUS 1 NOT DETECTED; PARAINFLUENZA VIRUS 2 NOT DETECTED; PARAINFLUENZA VIRUS 3 NOT DETECTED; PARAINFLUENZA VIRUS 4 NOT DETECTED; RSV- RESP PCR PANEL NOT DETECTED
[2020-09-22] MEDS: CYCLOBENZAPRINE 10 MG TABLET PO PRN (18:23)
--- NOTE | 2020-09-22 19:29 | PROVIDER PROGRESS NOTE ---
Assessment/Plan - Problem List (1) Fracture of right tibial plateau Qualifiers: Encounter type: initial encounter Fracture type: closed Qualified Code(s): S82.141A - Displaced bicondylar fracture of right tibia, initial encounter for closed fracture Assessment/Plan: She has a cast in place. Pain management with Tylenol and Motrin as needed. Narcotics were discontinued due to constipation She needs physical therapy at [facility]. Case management working to facilitate. Awaiting approval from insurance company. Likely disposition/discharge and 2 days (2) Constipation due to pain medication Assessment/Plan: Likely secondary to narcotics. These have been discontinued. Patient's constipation resolved with laxative. (4) Hypertension Assessment/Plan: Blood pressure medications for now because patient's systolic blood pressure this evening was 96. She complained of some dizziness as well. Suspect this is due to hypovolemia. Patient has an encouraged to increase her fluid intake. Will monitor closely. - Current Meds Current Meds: Current Medications Generic Name Dose Route Start Last Admin Trade Name Freq PRN Reason Stop Dose Admin Acetaminophen 1,000 mg 09/17/20 22:00 09/22/20 14:29 Acetaminophen 500 Mg Tablet PO 1,000 mg TID YANG Administration Aspirin 81 mg 09/17/20 21:00 09/22/20 09:44 Aspirin Chew 81 Mg Tablet PO 81 mg BID YANG Administration Cyclobenzaprine HCl 10 mg 09/17/20 20:05 09/22/20 18:23 Cyclobenzaprine 10 Mg Tablet PO 10 mg TID PRN Administration Spasms Docusate Sodium 250 - 500 mg 09/19/20 16:21 09/22/20 05:20 Docusate Sodium 250 Mg Capsule PO 500 mg BID YANG Administration Hydrochlorothiazide 25 mg 09/18/20 09:00 09/22/20 09:44 Hydrochlorothiazide 25 Mg Tablet PO 25 mg DAILY YANG Administration Ibuprofen 600 mg 09/17/20 20:05 09/22/20 17:13 Ibuprofen 400 Mg Tablet PO 600 mg Q6HR PRN Administration PAIN Losartan Potassium 50 mg 09/18/20 09:00 09/22/20 09:44 Losartan 50 Mg Tablet PO 50 mg DAILY YANG Administration Oxycodone HCl 5 mg 09/21/20 14:32 09/21/20 16:27 Oxycodone 5 Mg Tablet PO 5 mg Q4HR PRN Administration PAIN Polyethylene Glycol 17 gm 09/20/20 09:00 09/22/20 09:47 Polyethylene Glycol 3350 17 Gm Packet PO Not Given DAILY YANG Senna 8.6 - 17.2 mg 09/19/20 16:22 09/22/20 09:47 Senna 8.6 Mg Tablet PO 8.6 mg BID YANG Administration - Lab Result Fish Bone Diagrams: 09/22/20 05:42 09/22/20 05:42 Subjective - Subjective Patient Reports: Other (Patient was resting comfortably in bed at time of exam. She rates her right knee pain 5 out of 10. She reported dizziness earlier in the day. Her systolic blood pressure was a little low today. She has been keeping hydrated by drinking a lot of water. She denied any other complaints.) Objective Vital Signs: Vital Signs - 24 hr 09/21/20 09/22/20 09/22/20 22:05 00:33 08:34 Temperature 37.6 C 36.7 C Heart Rate 89 Heart Rate [ 92 85 Brachial] Respiratory 18 17 16 Rate Blood Pressure 137/70 H 138/65 H [Right Brachial artery] O2 Saturation 94 95 09/22/20 09/22/20 10:45 16:04 Temperature 37.0 C Heart Rate 85 Heart Rate [ 86 Brachial] Respiratory 16 16 Rate Blood Pressure 96/75 [Right Brachial artery] O2 Saturation 95 Oxygen O2 Source Room air I&O (Last 24 Hrs): Intake and Output Totals x24h 09/20/20 09/21/20 09/22/20 23:59 23:59 23:59 Intake Total 710 890 660 Output Total 350 1 Balance 710 540 659 General: Alert, Oriented x3, Mild distress, Moderate distress HEENT: PERRLA, EOMI Neck: No JVD Neuro: Alert, Oriented Times 3 Cardiovascular: Regular rate, Normal S1, Normal S2 Respiratory: Chest non-tender, No respiratory distress, Breath sounds nml Abdomen: Normal bowel sounds, Soft Extremities: No clubbing, No edema, Other (right lower extremity wrapped in bandage) Skin: No rashes, No breakdown - Results Results: Laboratory Results WBC 8.6 x10^3/uL (4.8-10.8) 09/22/20 05:42 RBC 4.15 10^6/uL (4.20-5.40) L 09/22/20 05:42 Hgb 13.3 g/dL (12.0-16.0) 09/22/20 05:42 Hct 40.6 % (37.0-47.0) 09/22/20 05:42 MCV 97.8 fL (81.0-99.0) 09/22/20 05:42 MCH 32.0 pg (27.0-31.0) H 09/22/20 05:42 MCHC 32.8 g/dL (32.0-36.0) 09/22/20 05:42 RDW 12.7 % (12.0-15.0) 09/22/20 05:42 Plt Count 260 10^3/uL (130-450) 09/22/20 05:42 MPV 9.8 fL (7.9-10.8) 09/22/20 05:42 Neut # (Auto) 5.8 10^3/uL (1.5-6.6) 09/22/20 05:42 Lymph # (Auto) 1.7 10^3/uL (1.5-3.5) 09/22/20 05:42 [place] # (Auto) 0.6 10^3/uL (0.0-1.0) 09/22/20 05:42 Eos # (Auto) 0.3 10^3/uL (0.0-0.7) 09/22/20 05:42 Baso # (Auto) 0.1 10^3/uL (0.0-0.1) 09/22/20 05:42 Absolute Nucleated RBC 0.00 x10^3/uL 09/22/20 05:42 Nucleated RBC % 0.0 /100WBC 09/22/20 05:42 PT 11.8 secs (9.9-12.6) 09/16/20 21:54 INR 1.1 (0.8-1.2) 09/16/20 21:54 Sodium 139 mmol/L (135-145) 09/22/20 05:42 Potassium 3.4 mmol/L (3.5-5.0) L 09/22/20 05:42 Chloride 101 mmol/L (101-111) 09/22/20 05:42 Carbon Dioxide 27 mmol/L (21-32) 09/22/20 05:42 Anion Gap 11.0 (6-13) 09/22/20 05:42 BUN 21 mg/dL (6-20) H 09/22/20 05:42 Creatinine 0.6 mg/dL (0.4-1.0) 09/22/20 05:42 Estimated GFR (MDRD) 99 (>89) 09/22/20 05:42 Glucose 108 mg/dL (70-100) H 09/22/20 05:42 Calcium 9.4 mg/dL (8.5-10.3) 09/22/20 05:42 Nasal Adenovirus (PCR) NOT DETECTED 09/22/20 11:34 Nasal B. parapertussis DNA (PCR) NOT DETECTED 09/22/20 11:34 Nasal Coronavir 229E PCR NOT DETECTED 09/22/20 11:34 Nasal Coronavir HKU1 PCR NOT DETECTED 09/22/20 11:34 Nasal Coronavir NL63 PCR NOT DETECTED 09/22/20 11:34 Nasal Coronavir OC43 PCR NOT DETECTED 09/22/20 11:34 Nasal Enterovir/Rhinovir PCR NOT DETECTED 09/22/20 11:34 Nasal Influenza B PCR NOT DETECTED 09/22/20 11:34 Nasal Influenza A PCR NOT DETECTED 09/22/20 11:34 Nasal Parainfluen 1 PCR NOT DETECTED 09/22/20 11:34 Nasal Parainfluen 2 PCR NOT DETECTED 09/22/20 11:34 Nasal Parainfluen 3 PCR NOT DETECTED 09/22/20 11:34 Nasal Parainfluen 4 PCR NOT DETECTED 09/22/20 11:34 Nasal RSV (PCR) NOT DETECTED 09/22/20 11:34 Nasal B.pertussis DNA PCR NOT DETECTED 09/22/20 11:34 Nasal C.pneumoniae (PCR) NOT DETECTED 09/22/20 11:34 Geo Human Metapneumo PCR NOT DETECTED 09/22/20 11:34 Nasal M.pneumoniae (PCR) NOT DETECTED 09/22/20 11:34 Nasal SARS-CoV-2 (PCR) NOT DETECTED 09/22/20 11:34 Sepsis Event Note (H) - Evaluation Current Stage of Sepsis: Ruled out ABX Reporting Has patient been on IV antibiotics over the past 48 hours?: No
[2020-09-23] MEDS: IBUPROFEN 400 MG TABLET PO PRN ×3 (01:19→16:02)
[2020-09-23] MEDS: oxyCODONE 5 MG TABLET PO PRN ×5 (02:23→23:42)
[2020-09-23 05:11] LABS: BASOPHILS # (AUTO) 0.1 10^3/uL (0.0-0.1); BASOPHILS % (AUTO) 0.9 %; EOSINOPHILS # (AUTO) 0.4 10^3/uL (0.0-0.7); EOSINOPHILS % (AUTO) 5.8 %; HCT - HEMATOCRIT 36.9 % (37.0-47.0); HGB - HEMOGLOBIN 12.6 g/dL (12.0-16.0); LYMPHOCYTES # (AUTO) 2.3 10^3/uL (1.5-3.5); LYMPHOCYTES % (AUTO) 35.4 %; MEAN CORPUSCULAR HEMOGLOBIN 33.5 pg (27.0-31.0); MEAN CORPUSCULAR HGB CONC 34.1 g/dL (32.0-36.0); MEAN CORPUSCULAR VOLUME 98.1 fL (81.0-99.0); MEAN PLATELET VOLUME 10.1 fL (7.9-10.8); MONOCYTES # (AUTO) 0.6 10^3/uL (0.0-1.0); MONOCYTES % (AUTO) 9.3 %; NEUTROPHILS # (AUTO) 3.2 10^3/uL (1.5-6.6); NEUTROPHILS % (AUTO) 48.4 %; PLT - PLATELET COUNT 252 10^3/uL (130-450); RED BLOOD COUNT 3.76 10^6/uL (4.20-5.40); RED CELL DISTRIBUTION WIDTH 12.7 % (12.0-15.0); WHITE BLOOD COUNT 6.6 x10^3/uL (4.8-10.8)
[2020-09-23 05:25] LABS: CREATININE 0.6 mg/dL (0.4-1.0); POTASSIUM 3.4 mmol/L (3.5-5.0)
[2020-09-23] MEDS: CYCLOBENZAPRINE 10 MG TABLET PO PRN ×2 (06:40→19:46)
[2020-09-23] MEDS: ACETAMINOPHEN 500 MG TABLET PO SCH ×3 (06:40→21:07)
[2020-09-23] MEDS: ASPIRIN CHEW 81 MG TABLET PO SCH ×2 (08:14→21:07)
[2020-09-23] MEDS: hydroCHLOROthiazide 25 MG TABLET PO SCH (08:14)
[2020-09-23] MEDS: LOSARTAN 50 MG TABLET PO SCH (08:15)
[2020-09-23] MEDS: POTASSIUM CHLORIDE 20 MEQ TABLET PO SCH (08:15)
[2020-09-23] MEDS: DOCUSATE SODIUM 250 MG CAPSULE PO SCH ×2 (08:18→21:07)
[2020-09-23] MEDS: SENNA 8.6 MG TABLET PO SCH ×2 (08:18→21:08)
[2020-09-23] MEDS: polyethylene glycoL 3350 17 GM PACKET PO SCH (08:18)
--- NOTE | 2020-09-23 19:05 | PROVIDER PROGRESS NOTE ---
Assessment/Plan - Problem List (1) Fracture of right tibial plateau Qualifiers: Encounter type: initial encounter Fracture type: closed Qualified Code(s): S82.141A - Displaced bicondylar fracture of right tibia, initial encounter for closed fracture Assessment/Plan: She has a cast in place. Pain management with Tylenol and Motrin as needed. Narcotics were discontinued due to constipation She needs physical therapy at [facility]. Case management working to facilitate. The orthopedic surgeon has specifically requested that patient's rehab should take place in a facility close by so that the patient can easily follow-up in the outpatient orthopedic clinic in [facility] for optimum continuity of care. (2) Constipation due to pain medication Assessment/Plan: Continue laxatives as needed. (4) Hypertension Assessment/Plan: Patient was hypotensive yesterday but blood pressure improved today. Patient continues to keep on top of her oral hydration adequately. - Current Meds Current Meds: Current Medications Generic Name Dose Route Start Last Admin Trade Name Freq PRN Reason Stop Dose Admin Acetaminophen 1,000 mg 09/17/20 22:00 09/23/20 14:24 Acetaminophen 500 Mg Tablet PO 1,000 mg TID YANG Administration Aspirin 81 mg 09/17/20 21:00 09/23/20 08:14 Aspirin Chew 81 Mg Tablet PO 81 mg BID YANG Administration Cyclobenzaprine HCl 10 mg 09/17/20 20:05 09/23/20 06:40 Cyclobenzaprine 10 Mg Tablet PO 10 mg TID PRN Administration Spasms Docusate Sodium 250 - 500 mg 09/19/20 16:21 09/23/20 08:18 Docusate Sodium 250 Mg Capsule PO Not Given BID YANG Hydrochlorothiazide 25 mg 09/18/20 09:00 09/23/20 08:14 Hydrochlorothiazide 25 Mg Tablet PO 25 mg DAILY YANG Administration Ibuprofen 600 mg 09/17/20 20:05 09/23/20 16:02 Ibuprofen 400 Mg Tablet PO 600 mg Q6HR PRN Administration PAIN Losartan Potassium 50 mg 09/18/20 09:00 09/23/20 08:15 Losartan 50 Mg Tablet PO 50 mg DAILY YANG Administration Oxycodone HCl 5 mg 09/21/20 14:32 09/23/20 17:32 Oxycodone 5 Mg Tablet PO 5 mg Q4HR PRN Administration PAIN Polyethylene Glycol 17 gm 09/20/20 09:00 09/23/20 08:18 Polyethylene Glycol 3350 17 Gm Packet PO Not Given DAILY YANG Potassium Chloride 20 meq 09/23/20 08:00 09/23/20 08:15 Potassium Chloride 20 Meq Tablet PO 20 meq DAILYWM YANG Administration Senna 8.6 - 17.2 mg 09/19/20 16:22 09/23/20 08:18 Senna 8.6 Mg Tablet PO Not Given BID YANG - Lab Result Fish Bone Diagrams: 09/23/20 04:49 09/23/20 04:49 Subjective - Subjective Patient Reports: Other (And resting comfortably in bed. She complains of slightly more pain today but thinks it is because she has been doing more ambulation. She denied any other complaints.) Objective Vital Signs: Vital Signs - 24 hr 09/22/20 09/23/20 09/23/20 20:00 00:15 08:10 Temperature 36.6 C 37 C Heart Rate 86 Heart Rate [ 80 75 Brachial] Respiratory 16 17 14 Rate Blood Pressure 125/59 L 128/69 [Right Brachial artery] O2 Saturation 95 95 09/23/20 09/23/20 11:50 17:42 Temperature 36.9 C Heart Rate 75 Heart Rate [ 79 Brachial] Respiratory 18 16 Rate Blood Pressure 110/71 [Right Brachial artery] O2 Saturation 98 Oxygen O2 Source Room air I&O (Last 24 Hrs): Intake and Output Totals x24h 09/21/20 09/22/20 09/23/20 23:59 23:59 23:59 Intake Total 890 910 560 Output Total 350 1 Balance 540 909 560 General: Alert, Oriented x3, Mild distress, Moderate distress HEENT: Atraumatic, EOMI Neck: Supple, No JVD Neuro: Alert, Non Focal, Oriented Times 3 Cardiovascular: Regular rate, Normal S1, Normal S2 Respiratory: Chest non-tender, No respiratory distress, Breath sounds nml Abdomen: Normal bowel sounds, Soft Extremities: No clubbing, No cyanosis, No edema Skin: No rashes - Results Results: Laboratory Results WBC 6.6 x10^3/uL (4.8-10.8) 09/23/20 04:49 RBC 3.76 10^6/uL (4.20-5.40) L 09/23/20 04:49 Hgb 12.6 g/dL (12.0-16.0) 09/23/20 04:49 Hct 36.9 % (37.0-47.0) L 09/23/20 04:49 MCV 98.1 fL (81.0-99.0) 09/23/20 04:49 MCH 33.5 pg (27.0-31.0) H 09/23/20 04:49 MCHC 34.1 g/dL (32.0-36.0) 09/23/20 04:49 RDW 12.7 % (12.0-15.0) 09/23/20 04:49 Plt Count 252 10^3/uL (130-450) 09/23/20 04:49 MPV 10.1 fL (7.9-10.8) 09/23/20 04:49 Neut # (Auto) 3.2 10^3/uL (1.5-6.6) 09/23/20 04:49 Lymph # (Auto) 2.3 10^3/uL (1.5-3.5) 09/23/20 04:49 [place] # (Auto) 0.6 10^3/uL (0.0-1.0) 09/23/20 04:49 Eos # (Auto) 0.4 10^3/uL (0.0-0.7) 09/23/20 04:49 Baso # (Auto) 0.1 10^3/uL (0.0-0.1) 09/23/20 04:49 Absolute Nucleated RBC 0.00 x10^3/uL 09/23/20 04:49 Nucleated RBC % 0.0 /100WBC 09/23/20 04:49 PT 11.8 secs (9.9-12.6) 09/16/20 21:54 INR 1.1 (0.8-1.2) 09/16/20 21:54 Sodium 140 mmol/L (135-145) 09/23/20 04:49 Potassium 3.4 mmol/L (3.5-5.0) L 09/23/20 04:49 Chloride 106 mmol/L (101-111) 09/23/20 04:49 Carbon Dioxide 25 mmol/L (21-32) 09/23/20 04:49 Anion Gap 9.0 (6-13) 09/23/20 04:49 BUN 20 mg/dL (6-20) 09/23/20 04:49 Creatinine 0.6 mg/dL (0.4-1.0) 09/23/20 04:49 Estimated GFR (MDRD) 99 (>89) 09/23/20 04:49 Glucose 99 mg/dL (70-100) 09/23/20 04:49 Calcium 9.0 mg/dL (8.5-10.3) 09/23/20 04:49 Nasal Adenovirus (PCR) NOT DETECTED 09/22/20 11:34 Nasal B. parapertussis DNA (PCR) NOT DETECTED 09/22/20 11:34 Nasal Coronavir 229E PCR NOT DETECTED 09/22/20 11:34 Nasal Coronavir HKU1 PCR NOT DETECTED 09/22/20 11:34 Nasal Coronavir NL63 PCR NOT DETECTED 09/22/20 11:34 Nasal Coronavir OC43 PCR NOT DETECTED 09/22/20 11:34 Nasal Enterovir/Rhinovir PCR NOT DETECTED 09/22/20 11:34 Nasal Influenza B PCR NOT DETECTED 09/22/20 11:34 Nasal Influenza A PCR NOT DETECTED 09/22/20 11:34 Nasal Parainfluen 1 PCR NOT DETECTED 09/22/20 11:34 Nasal Parainfluen 2 PCR NOT DETECTED 09/22/20 11:34 Nasal Parainfluen 3 PCR NOT DETECTED 09/22/20 11:34 Nasal Parainfluen 4 PCR NOT DETECTED 09/22/20 11:34 Nasal RSV (PCR) NOT DETECTED 09/22/20 11:34 Nasal B.pertussis DNA PCR NOT DETECTED 09/22/20 11:34 Nasal C.pneumoniae (PCR) NOT DETECTED 09/22/20 11:34 Geo Human Metapneumo PCR NOT DETECTED 09/22/20 11:34 Nasal M.pneumoniae (PCR) NOT DETECTED 09/22/20 11:34 Nasal SARS-CoV-2 (PCR) NOT DETECTED 09/22/20 11:34 Sepsis Event Note (H) - Evaluation Current Stage of Sepsis: Ruled out ABX Reporting Has patient been on IV antibiotics over the past 48 hours?: No
[2020-09-24] MEDS: oxyCODONE 5 MG TABLET PO PRN ×5 (06:34→22:56)
[2020-09-24] MEDS: ACETAMINOPHEN 500 MG TABLET PO SCH ×3 (06:35→21:44)
[2020-09-24] MEDS: ASPIRIN CHEW 81 MG TABLET PO SCH ×2 (08:22→21:44)
[2020-09-24] MEDS: LOSARTAN 50 MG TABLET PO SCH (08:22)
[2020-09-24] MEDS: hydroCHLOROthiazide 25 MG TABLET PO SCH (08:22)
[2020-09-24] MEDS: POTASSIUM CHLORIDE 20 MEQ TABLET PO SCH (08:22)
[2020-09-24] MEDS: IBUPROFEN 400 MG TABLET PO PRN ×2 (08:23→14:09)
[2020-09-24] MEDS: SENNA 8.6 MG TABLET PO SCH ×2 (08:25→21:44)
[2020-09-24] MEDS: DOCUSATE SODIUM 250 MG CAPSULE PO SCH ×2 (09:12→21:44)
[2020-09-24] MEDS: polyethylene glycoL 3350 17 GM PACKET PO SCH (13:07)
[2020-09-24] MEDS: CHOLECALCIFEROL 25 MCG TABLET PO SCH (13:17)
--- NOTE | 2020-09-24 14:51 | PROVIDER PROGRESS NOTE ---
Assessment/Plan - Problem List (1) Fracture of right tibial plateau Qualifiers: Encounter type: initial encounter Fracture type: closed Qualified Code(s): S82.141A - Displaced bicondylar fracture of right tibia, initial encounter for closed fracture Assessment/Plan: Patient reported she feel pain when she ambulate with physical therapist, she agree the pain management now. we will continue current pain management with PRN of Motrin, Tylenol and low dosage of oxycodone, Continue physical therapist and occupational therapist, Continue consult with social work for safely disposition, orthopedic surgeon has specifically concerned that patient's rehab was in a facility close by, so that the patient can easily be follow-up in the outpatient orthopedic clinic in [place]. (2) Constipation due to pain medication no complaint on today, We will follow up with nurse protocol for constipation (4) Hypertension stable. Continue HCTZ, Cozaar, continue vital signs monitor - Current Meds Current Meds: Current Medications Generic Name Dose Route Start Last Admin Trade Name Freq PRN Reason Stop Dose Admin Acetaminophen 1,000 mg 09/17/20 22:00 09/24/20 14:10 Acetaminophen 500 Mg Tablet PO 1,000 mg TID YANG Administration Aspirin 81 mg 09/17/20 21:00 09/24/20 08:22 Aspirin Chew 81 Mg Tablet PO 81 mg BID YANG Administration Cholecalciferol 50 mcg 09/24/20 11:00 09/24/20 13:17 Cholecalciferol 25 Mcg Tablet PO 50 mcg DAILY YANG Administration Cyclobenzaprine HCl 10 mg 09/17/20 20:05 09/23/20 19:46 Cyclobenzaprine 10 Mg Tablet PO 10 mg TID PRN Administration Spasms Docusate Sodium 250 - 500 mg 09/19/20 16:21 09/24/20 09:12 Docusate Sodium 250 Mg Capsule PO 250 mg BID YANG Administration Hydrochlorothiazide 25 mg 09/18/20 09:00 09/24/20 08:22 Hydrochlorothiazide 25 Mg Tablet PO 25 mg DAILY YANG Administration Ibuprofen 600 mg 09/17/20 20:05 09/24/20 14:09 Ibuprofen 400 Mg Tablet PO 600 mg Q6HR PRN Administration PAIN Losartan Potassium 50 mg 09/18/20 09:00 09/24/20 08:22 Losartan 50 Mg Tablet PO 50 mg DAILY YANG Administration Oxycodone HCl 5 mg 09/21/20 14:32 09/24/20 10:41 Oxycodone 5 Mg Tablet PO 5 mg Q4HR PRN Administration PAIN Polyethylene Glycol 17 gm 09/20/20 09:00 09/24/20 13:07 Polyethylene Glycol 3350 17 Gm Packet PO Not Given DAILY YANG Potassium Chloride 20 meq 09/23/20 08:00 09/24/20 08:22 Potassium Chloride 20 Meq Tablet PO 20 meq DAILYWM YANG Administration Senna 8.6 - 17.2 mg 09/19/20 16:22 09/24/20 08:25 Senna 8.6 Mg Tablet PO 8.6 mg BID YANG Administration - Lab Result Fish Bone Diagrams: 09/23/20 04:49 09/23/20 04:49 - Additional Planning My Orders: My Active Orders 09/24/20 11:00 Cholecalciferol [Vitamin D3] 50 mcg PO DAILY 09/24/20 21:00 Calcium Carbonate [Tums] 500 mg PO BID 09/25/20 05:00 BMP - BASIC METABOLIC PANEL [CHEM] DAILYLAB CBC - COMP BLD CT W/AUTO DIFF [HEME] DAILYLAB 09/26/20 05:00 BMP - BASIC METABOLIC PANEL [CHEM] DAILYLAB CBC - COMP BLD CT W/AUTO DIFF [HEME] DAILYLAB 09/27/20 05:00 BMP - BASIC METABOLIC PANEL [CHEM] DAILYLAB CBC - COMP BLD CT W/AUTO DIFF [HEME] DAILYLAB 09/28/20 05:00 BMP - BASIC METABOLIC PANEL [CHEM] DAILYLAB CBC - COMP BLD CT W/AUTO DIFF [HEME] DAILYLAB Subjective - Subjective Patient Reports: Feeling Better Objective Vital Signs: Vital Signs - 24 hr 09/23/20 09/23/20 09/24/20 17:42 21:05 00:04 Temperature 36.9 C 36.5 C Heart Rate 69 Heart Rate [ 79 68 Brachial] Respiratory 16 16 16 Rate Blood Pressure 110/71 134/64 H [Right Brachial artery] O2 Saturation 98 95 09/24/20 07:50 Temperature 37.5 C Heart Rate Heart Rate [ 68 Brachial] Respiratory 17 Rate Blood Pressure 124/62 [Right Brachial artery] O2 Saturation 94 Oxygen O2 Source Room air I&O (Last 24 Hrs): Intake and Output Totals x24h 09/22/20 09/23/20 09/24/20 23:59 23:59 23:59 Intake Total 910 910 240 Output Total 1 Balance 909 910 240 General: Alert, Oriented x3, Cooperative, No acute distress HEENT: Atraumatic Neck: Supple Lymphatic: no adenopathy Neuro: Alert, Non Focal, Oriented Times 3 Cardiovascular: Regular rate, Normal S1, Normal S2 Respiratory: Chest non-tender, No respiratory distress, Breath sounds nml Abdomen: Normal bowel sounds, Soft, No tenderness Skin: No breakdown - Results Results: Laboratory Results WBC 6.6 x10^3/uL (4.8-10.8) 09/23/20 04:49 RBC 3.76 10^6/uL (4.20-5.40) L 09/23/20 04:49 Hgb 12.6 g/dL (12.0-16.0) 09/23/20 04:49 Hct 36.9 % (37.0-47.0) L 09/23/20 04:49 MCV 98.1 fL (81.0-99.0) 09/23/20 04:49 MCH 33.5 pg (27.0-31.0) H 09/23/20 04:49 MCHC 34.1 g/dL (32.0-36.0) 09/23/20 04:49 RDW 12.7 % (12.0-15.0) 09/23/20 04:49 Plt Count 252 10^3/uL (130-450) 09/23/20 04:49 MPV 10.1 fL (7.9-10.8) 09/23/20 04:49 Neut # (Auto) 3.2 10^3/uL (1.5-6.6) 09/23/20 04:49 Lymph # (Auto) 2.3 10^3/uL (1.5-3.5) 09/23/20 04:49 [place] # (Auto) 0.6 10^3/uL (0.0-1.0) 09/23/20 04:49 Eos # (Auto) 0.4 10^3/uL (0.0-0.7) 09/23/20 04:49 Baso # (Auto) 0.1 10^3/uL (0.0-0.1) 09/23/20 04:49 Absolute Nucleated RBC 0.00 x10^3/uL 09/23/20 04:49 Nucleated RBC % 0.0 /100WBC 09/23/20 04:49 PT 11.8 secs (9.9-12.6) 09/16/20 21:54 INR 1.1 (0.8-1.2) 09/16/20 21:54 Sodium 140 mmol/L (135-145) 09/23/20 04:49 Potassium 3.4 mmol/L (3.5-5.0) L 09/23/20 04:49 Chloride 106 mmol/L (101-111) 09/23/20 04:49 Carbon Dioxide 25 mmol/L (21-32) 09/23/20 04:49 Anion Gap 9.0 (6-13) 09/23/20 04:49 BUN 20 mg/dL (6-20) 09/23/20 04:49 Creatinine 0.6 mg/dL (0.4-1.0) 09/23/20 04:49 Estimated GFR (MDRD) 99 (>89) 09/23/20 04:49 Glucose 99 mg/dL (70-100) 09/23/20 04:49 Calcium 9.0 mg/dL (8.5-10.3) 09/23/20 04:49 Nasal Adenovirus (PCR) NOT DETECTED 09/22/20 11:34 Nasal B. parapertussis DNA (PCR) NOT DETECTED 09/22/20 11:34 Nasal Coronavir 229E PCR NOT DETECTED 09/22/20 11:34 Nasal Coronavir HKU1 PCR NOT DETECTED 09/22/20 11:34 Nasal Coronavir NL63 PCR NOT DETECTED 09/22/20 11:34 Nasal Coronavir OC43 PCR NOT DETECTED 09/22/20 11:34 Nasal Enterovir/Rhinovir PCR NOT DETECTED 09/22/20 11:34 Nasal Influenza B PCR NOT DETECTED 09/22/20 11:34 Nasal Influenza A PCR NOT DETECTED 09/22/20 11:34 Nasal Parainfluen 1 PCR NOT DETECTED 09/22/20 11:34 Nasal Parainfluen 2 PCR NOT DETECTED 09/22/20 11:34 Nasal Parainfluen 3 PCR NOT DETECTED 09/22/20 11:34 Nasal Parainfluen 4 PCR NOT DETECTED 09/22/20 11:34 Nasal RSV (PCR) NOT DETECTED 09/22/20 11:34 Nasal B.pertussis DNA PCR NOT DETECTED 09/22/20 11:34 Nasal C.pneumoniae (PCR) NOT DETECTED 09/22/20 11:34 Geo Human Metapneumo PCR NOT DETECTED 09/22/20 11:34 Nasal M.pneumoniae (PCR) NOT DETECTED 09/22/20 11:34 Nasal SARS-CoV-2 (PCR) NOT DETECTED 09/22/20 11:34 Sepsis Event Note (H) - Evaluation Current Stage of Sepsis: Ruled out ABX Reporting Has patient been on IV antibiotics over the past 48 hours?: No Current Medications - Current Medications Current Medications: Active Medications Acetaminophen (Acetaminophen 500 Mg Tablet) 1,000 mg PO TID [facility] Last Admin: 09/24/20 14:10 Dose: 1,000 mg Documented by: Albuterol (Albuterol Neb 2.5 Mg/3 Ml) 2.5 mg INH RTQ4H PRN PRN Reason: Wheezing Aspirin (Aspirin Chew 81 Mg Tablet) 81 mg PO BID [facility] Last Admin: 09/24/20 08:22 Dose: 81 mg Documented by: Calcium Carbonate/Glycine (Calcium Carbonate Chew 500 Mg Tablet) 500 mg PO BID [facility] Cholecalciferol (Cholecalciferol 25 Mcg Tablet) 50 mcg PO DAILY [facility] Last Admin: 09/24/20 13:17 Dose: 50 mcg Documented by: Cyclobenzaprine HCl (Cyclobenzaprine 10 Mg Tablet) 10 mg PO TID PRN PRN Reason: Spasms Last Admin: 09/23/20 19:46 Dose: 10 mg Documented by: Docusate Sodium (Docusate Sodium 250 Mg Capsule) 250 - 500 mg PO BID [facility] Last Admin: 09/24/20 09:12 Dose: 250 mg Documented by: Hydrochlorothiazide (Hydrochlorothiazide 25 Mg Tablet) 25 mg PO DAILY [facility] Last Admin: 09/24/20 08:22 Dose: 25 mg Documented by: Hydromorphone HCl (Hydromorphone 0.5 Mg/0.5 Ml Syringe) 0.5 mg IVP Q1H PRN PRN Reason: PAIN Ibuprofen (Ibuprofen 400 Mg Tablet) 600 mg PO Q6HR PRN PRN Reason: PAIN Last Admin: 09/24/20 14:09 Dose: 600 mg Documented by: Losartan Potassium (Losartan 50 Mg Tablet) 50 mg PO DAILY [facility] Last Admin: 09/24/20 08:22 Dose: 50 mg Documented by: Ondansetron HCl (Ondansetron 4 Mg/2 Ml Vial) 4 mg IVP Q6H PRN PRN Reason: Nausea / Vomiting Oxycodone HCl (Oxycodone 5 Mg Tablet) 5 mg PO Q4HR PRN PRN Reason: PAIN Last Admin: 09/24/20 10:41 Dose: 5 mg Documented by: Polyethylene Glycol (Polyethylene Glycol 3350 17 Gm Packet) 17 gm PO DAILY [facility] Last Admin: 09/24/20 13:07 Dose: Not Given Documented by: Potassium Chloride (Potassium Chloride 20 Meq Tablet) 20 meq PO DAILYWM [facility] Last Admin: 09/24/20 08:22 Dose: 20 meq Documented by: Senna (Senna 8.6 Mg Tablet) 8.6 - 17.2 mg PO BID [facility] Last Admin: 09/24/20 08:25 Dose: 8.6 mg Documented by: Albuterol Sulfate [Proair Hfa Inhaler] 2 puffs INH ONCE PRN 09/16/20 Mometasone Furoate [Asmanex Hfa] 2 puffs INH BID 09/16/20 Valsartan/Hydrochlorothiazide [Diovan Hct 160-25 mg Tablet] 1 tab PO DAILY 09/16/20 Zolpidem [Ambien] 2.5 - 5 mg PO QPM PRN 09/17/20
[2020-09-24] MEDS: CYCLOBENZAPRINE 10 MG TABLET PO PRN (18:59)
[2020-09-24] MEDS: CALCIUM CARBONATE CHEW 500 MG TABLET PO SCH (21:44)
[2020-09-25 05:35] LABS: BASOPHILS # (AUTO) 0.1 10^3/uL (0.0-0.1); BASOPHILS % (AUTO) 0.8 %; EOSINOPHILS # (AUTO) 0.4 10^3/uL (0.0-0.7); EOSINOPHILS % (AUTO) 5.9 %; HCT - HEMATOCRIT 36.2 % (37.0-47.0); HGB - HEMOGLOBIN 12.2 g/dL (12.0-16.0); LYMPHOCYTES # (AUTO) 2.4 10^3/uL (1.5-3.5); LYMPHOCYTES % (AUTO) 36.7 %; MEAN CORPUSCULAR HEMOGLOBIN 32.7 pg (27.0-31.0); MEAN CORPUSCULAR HGB CONC 33.7 g/dL (32.0-36.0); MEAN CORPUSCULAR VOLUME 97.1 fL (81.0-99.0); MEAN PLATELET VOLUME 9.4 fL (7.9-10.8); MONOCYTES # (AUTO) 0.5 10^3/uL (0.0-1.0); MONOCYTES % (AUTO) 8.1 %; NEUTROPHILS # (AUTO) 3.1 10^3/uL (1.5-6.6); NEUTROPHILS % (AUTO) 48.3 %; PLT - PLATELET COUNT 253 10^3/uL (130-450); RED BLOOD COUNT 3.73 10^6/uL (4.20-5.40); RED CELL DISTRIBUTION WIDTH 12.3 % (12.0-15.0); WHITE BLOOD COUNT 6.4 x10^3/uL (4.8-10.8)
[2020-09-25 05:45] LABS: CALCIUM 9.3 mg/dL (8.5-10.3); CREATININE 0.6 mg/dL (0.4-1.0); POTASSIUM 3.3 mmol/L (3.5-5.0)
[2020-09-25] MEDS: ACETAMINOPHEN 500 MG TABLET PO SCH (06:16)
[2020-09-25] MEDS ORDERED: POTASSIUM CHLORIDE 20 MEQ TABLET PO ONE ×2 (07:46→08:00)
[2020-09-25] MEDS: hydroCHLOROthiazide 25 MG TABLET PO SCH (08:59)
[2020-09-25] MEDS: CHOLECALCIFEROL 25 MCG TABLET PO SCH (08:59)
[2020-09-25] MEDS: DOCUSATE SODIUM 250 MG CAPSULE PO SCH (09:00)
[2020-09-25] MEDS: ASPIRIN CHEW 81 MG TABLET PO SCH (09:00)
[2020-09-25] MEDS: LOSARTAN 50 MG TABLET PO SCH (09:00)
[2020-09-25] MEDS: SENNA 8.6 MG TABLET PO SCH (09:00)
[2020-09-25] MEDS: polyethylene glycoL 3350 17 GM PACKET PO SCH (09:01)
[2020-09-25] MEDS: CALCIUM CARBONATE CHEW 500 MG TABLET PO SCH (09:01)
[2020-09-25] MEDS: POTASSIUM CHLORIDE 20 MEQ TABLET PO SCH (09:19)
--- NOTE | 2020-09-25 10:38 | Discharge Plan ---
"Discharge Plan for SNF / MICHELLE - Discharge Plan And Transition Orders Problem Reviewed?: Yes Disposition: 03 SNF DC/Xfer Condition: Stable Allergies and Adverse Reactions: Allergies Allergy/AdvReac Type Severity Reaction Status Date / Time amoxicillin Allergy Hives Verified 09/16/20 20:15 bacitracin Allergy Hives Verified 09/16/20 20:15 clavulanic acid Allergy Hives Verified 09/16/20 20:15 [From Augmentin] Sulfa (Sulfonamide Allergy Hives Verified 09/16/20 20:15 Antibiotics) Health Concerns: fracture of tibial plateau, right Plan of Treatment: continue nonweightbearing on the right leg, continue PT/OT in SNF, followup with orthopedics surgeon office in 2 weeks or early as needed, continue Aspirin as DVT prophylaxis. Care Goals: stabilization and improvement/healing of pt's injury Assessment: discussed the care plan with pt, answered her questions, she understood. - SNF / MICHELLE Transition Orders Admit to (Facility): [facility] Under the care of (Name): Medical provider of [facility] Discharge Diagnosis: fracture of right tibial plateau (no surgical intervention at this time), HTN, Asthma Medicare Certification Statement: I certify that Post Hospital usp care is medically necessary on a continuing basis for any of the conditions for which she/he is receiving care during hospitalization. Notify PCP of admission and forward orders to primary provider for signature. Weight on admission and: Daily Call PCP immediately if weight increases by: 2 kg Other Notification Orders: Call PCP immediately if patient develops dyspnea, chest pain/tightness or edema. House Bowel Program: Yes Additional Bowel Program Orders: If no BM after 2 days, nurse may give M.O.M. 30ml PO PRN and/or ducolax Supp 1 [place] and/or ARTI 250mg P.O., and/or senna 1-2 tabs PO. On day 3 nurse may give repeat above order until residents constipation is resolved. Annual Influenza Vaccine (between Mar 27 and October 24): Yes Two-step PPD per [facility] [phone] or approved exception documents: Yes Treatments & Other Orders: continue nonweightbearing on the right leg, continue PT/OT in SNF, followup with orthopedics surgeon office in 2 weeks or early as needed, continue Aspirin as DVT prophylaxis. Medication Orders: PLEASE REFER TO THE DISCHARGE MEDICATION LIST. Insulin Orders?: No - Medications New Prescriptions: oxyCODONE [Roxicodone] 5 mg PO Q4HR PRN #20 mg PRN Reason: Pain Aspirin Chewable [[facility] Darius Aspirin] 81 mg PO BID #30 mg Calcium Carbonate [Tums (Calcium Carbonate 500mg)] 500 mg PO BID #30 mg Cholecalciferol [Vitamin D3] 50 mcg PO DAILY #30 mcg - Diet Type: Geriatric Texture: Regular Liquids: Thin May have monthly special meal: Yes - Therapies | Activity Therapy: Evaluation | Treat if indicated: PT, OT Rehabilitation Potential: Maximize functional status Activity: Activity as Tolerated Weight Bearing: No Weight"
--- NOTE | 2020-09-25 10:53 | DISCHARGE SUMMARY ---
Discharge Summary Admit Date: 09/16/20 Discharge Date: 09/25/20 Discharging Provider: Victoriano Casillas Primary Care Provider: Dr. Jose Tinsley Condition at Discharge: Stable Discharge Disposition: SNF DC/Xfer Discharge Facility Name: [facility] - DIAGNOSES Discharge Diagnoses with Status of Each Condition: (1) Fracture of right tibial plateau pt has no surgery intervention after pt discussed with orthopedics surgeon. pt had PT and OT evaluation and treatment, patient was recommended to be discharged to SNF. pt may continue nonweightbearing on the right leg, continue PT/OT in SNF, followup with orthopedics surgeon office in 2 weeks or early as needed, continue Aspirin as DVT prophylaxis. (2) Constipation due to pain medication resolved (3) Hypertension stable. (4)asthma stable - HPI History of Present Illness: Th is a 70-years old female with a past medical history significant for hypertension, allergy asthma, Sleep apnea, who has been on medical floor already close to two days. Now pt's chieft complaint is the pain on her right lower extremity is not controlled. Pt had Mechanical fall in 09/16/20. When she walked in the front of her , her fell forward and hit the back of her leg, and caused she fall. She felt the pain on her right lower extremity. CT of right lower extremity confirms a displaced and depressed right lateral tibial plateau fracture. Orthopedics already saw pt and discussed the care plan with pt. Nonoperative plan now was already as pt's care plan. Initially patient' care plan is one day surgery. Patient already had one more day time in hospital. I was asked to admit pt at observation unit. now pt complain of her pain was not controlled. Pt fear to take opiates pain medication at hospital. Pt report she felt mild dizziness in the Hospital before. Now she feel improved. Orthostatic BP check patient was not indicated to orthostatic hypotension. Patient had fair blood pressure control. Patient had adequate pain medications in [facility]. Patient's had advanced dementia and he need heavy care. The plan is after the patient had pain control, patient and her may both go to SNF. Patient need to continue to have care in SNF as recommended by team. - HOSPITAL COURSE Hospital Course: Patient was admitted for evaluation of Mechanical fall. CT of right lower extremity confirms a displaced and depressed right lateral tibial plateau fracture. Patient discussed with orthopedic surgeon and choose no surgical intervention. Patient had physical therapist and occupational therapist evaluation and treatment. Patient was recommended to be discharged SNF. pt stay in hospital for several day, Because of her insurance d/c plan and choosing issue, please reveal older adult social work specialist's notes in detail as needed. - ALLERGIES Allergies/Adverse Reactions: Allergies Allergy/AdvReac Type Severity Reaction Status Date / Time amoxicillin Allergy Hives Verified 09/16/20 20:15 bacitracin Allergy Hives Verified 09/16/20 20:15 clavulanic acid Allergy Hives Verified 09/16/20 20:15 [From Augmentin] Sulfa (Sulfonamide Allergy Hives Verified 09/16/20 20:15 Antibiotics) - MEDICATIONS Home Medications: Ambulatory Orders Medication Instructions Recorded Confirmed Albuterol Sulfate [Proair Hfa 2 puffs INH ONCE PRN 09/16/20 09/17/20 Inhaler] Mometasone Furoate [Asmanex Hfa] 2 puffs INH BID 09/16/20 09/16/20 Valsartan/Hydrochlorothiazide 1 tab PO DAILY 09/16/20 09/16/20 [Diovan Hct 160-25 mg Tablet] Aspirin Chewable [St Darius 81 mg PO BID #30 mg 09/25/20 Aspirin] Calcium Carbonate [Tums (Calcium 500 mg PO BID #30 mg 09/25/20 Carbonate 500mg)] Cholecalciferol [Vitamin D3] 50 mcg PO DAILY #30 mcg 09/25/20 Ibuprofen [Motrin] 600 mg PO Q6HR PRN #20 mg 09/25/20 Pantoprazole Sodium [Protonix] 20 mg PO DAILY #15 mg 09/25/20 oxyCODONE [Roxicodone] 5 mg PO Q4HR PRN #20 mg 09/25/20 - PHYSICAL EXAM AT DISCHARGE General Appearance: positive: No acute distress, Alert. negative: Lethargic Eyes Bilateral: positive: Normal inspection, PERRL, No lid inflammation ENT: positive: ENT inspection nml, No signs of dehydration. negative: Purulent nasal drainage Neck: positive: Nml inspection, Trachea midline. negative: Thyromegaly, Tracheal deviation Respiratory: positive: Chest non-tender, No respiratory distress. negative: Wheezes, Rales, Rhonchi Cardiovascular: positive: Regular rate & rhythm, No murmur. negative: Tachycardia, Bradycardia, Systolic murmur, Diastolic murmur Peripheral Pulses: positive: 2+ Abdomen: positive: Non-tender, Nml bowel sounds, No distention. negative: Tenderness, Guarding, Rebound Back: positive: Nml inspection Skin: positive: Color nml, Warm, Dry. negative: Cyanosis, Diaphoresis, Pallor Extremities: positive: Non-tender, Other (pt has intact neurovascular status in the distal right lower extremity) Neurologic/Psychiatric: positive: Oriented x3, Sensation nml, Mood/affect nml. negative: Weakness, Sensory loss, Facial droop, Slurred/abnml speech, Depressed mood/affect - LABS Result Diagrams: 09/25/20 05:15 09/25/20 05:15 - SEPSIS Current Stage of Sepsis: Ruled out - FOLLOW UP Follow Up: continue nonweightbearing on the right leg, continue PT/OT in SNF, followup with orthopedics surgeon office in 2 weeks or early as needed, continue Aspirin as DVT prophylaxis. - TIME SPENT Time Spent in Discharge (Minutes): 30
[2020-09-25] MEDS: oxyCODONE 5 MG TABLET PO PRN (11:07)
[2020-09-25 11:15] VITALS: BP 148/70
[2020-09-25 11:40] LABS: B. PARAPERTUSSIS- RESP PCR PAN NOT DETECTED; B. PERTUSSIS- RESP PCR PANEL NOT DETECTED; C. PNEUMONIAE- RESP PCR PANEL NOT DETECTED; CORONAVIRUS 229E-RESP PCR NOT DETECTED; CORONAVIRUS HKU1-RESP PCR NOT DETECTED; CORONAVIRUS NL63-RESP PCR NOT DETECTED; CORONAVIRUS OC43-RESP PCR NOT DETECTED; HUMAN METAPNEUMOVIRUS NOT DETECTED; INFLUENZA A- RESP PCR PANEL NOT DETECTED; INFLUENZA B - RESP PCR PANEL NOT DETECTED; M. PNEUMONIAE- RESP PCR PANEL NOT DETECTED; PARAINFLUENZA VIRUS 1 NOT DETECTED; PARAINFLUENZA VIRUS 2 NOT DETECTED; PARAINFLUENZA VIRUS 3 NOT DETECTED; PARAINFLUENZA VIRUS 4 NOT DETECTED; RHINOVIRUS/ENTEROVIRUS NOT DETECTED; RSV- RESP PCR PANEL NOT DETECTED; SARS-CoV-2 -RESP PCR PANEL NOT DETECTED
== END 2020-09-25 12:00 | DRG 563 ==
LOC: EDBD → ED 20:00 → SDS 21:41 → MS2 21:41 → SDS 09-18 10:32 → MS2 09-18 10:33 → OBSVTOIN 09-23 08:18
PROVIDERS: ADMIT Internal Medicine; ATTEND Nurse Practitioner Gerontology
DX: S82.141A Displaced bicondylar fracture of right tibia, initial encounter for closed fracture (principal); G89.11 Acute pain due to trauma; W03.XXXA Other fall on same level due to collision with another person, initial encounter; Y92.009 Unspecified place in unspecified non-institutional (private) residence as the place of occurrence of the external cause; K59.03 Drug induced constipation; T40.2X5A Adverse effect of other opioids, initial encounter; I10 Essential (primary) hypertension; J45.909 Unspecified asthma, uncomplicated; I95.9 Hypotension, unspecified; Z20.822 Contact with and (suspected) exposure to COVID-19; G47.30 Sleep apnea, unspecified; Z87.891 Personal history of nicotine dependence; R11.0 Nausea; F32.9 Major depressive disorder, single episode, unspecified; E87.6 Hypokalemia; K58.9 Irritable bowel syndrome, unspecified; M85.80 Other specified disorders of bone density and structure, unspecified site
CPT/HCPCS: 0202U; 36415; 80048; 85025; 85610; 96374; 96375; 99284

== ENCOUNTER 2020-11-01 14:23 | Outpatient (CLI) | payer MEDICARE ==
--- NOTE | 2020-11-01 16:45 | XRAY Report ---
PROCEDURE: Knee Standing RT INDICATIONS: RIGHT DISPLACED FRACTURE OF LATERAL CONDYLE OF FEMUR TECHNIQUE: 4 views of the right knee are obtained. COMPARISON: 09/16/2020 FINDINGS: Bones: There is a mildly depressed fracture of the lateral tibial plateau which appears unchanged in alignment. No suspicious bony lesions. Joint spaces appear normal with weightbearing. Moderate tric ompartmental periarticular osteophyte formation is present. Severe lateral compartment narrowing is p resent. Soft tissues: Small knee joint effusion. No suspicious soft tissue calcification. IMPRESSION: No significant change in lateral tibial plateau fracture. Osteoarthritis. Reviewed by: Yuri Jimenez MD on 11/01/2020 4:44 PM PDT Approved by: Yuri Jimenez MD on 11/01/2020 4:44 PM PDT Station ID: [id number]
== END 2020-11-01 23:59 | disposition home or self-care (01) ==
LOC: DI.N 14:23
PROVIDERS: ATTEND Orthopaedic Surgery
DX: M17.11 Unilateral primary osteoarthritis, right knee (principal)

== ENCOUNTER 2021-08-05 11:58 | Outpatient (CLI) | payer MEDICARE ==
--- NOTE | 2021-08-05 13:52 | DEXA Report ---
PROCEDURE: Dexa Spine and/or Hip INDICATIONS: POSTMENOPAUSAL, OSTEOPENIA TECHNIQUE: Dual energy x-ray absorptiometry (DXA) was performed on a [employer] System. Regions measur ed are the AP Spine, femoral neck, and if needed forearm. COMPARISON: None. FINDINGS: Lumbar Spine: Bone Mineral Density 1.090 g/cm/cm,T score -0.8, normal, unchanged Left Hip: Bone Mineral Density 0.908 g/cm/cm,T score -0.8, compared to -0.5 Left Femoral Neck: Bone Mineral Density 0.821 g/cm/cm, T score -1.6, compared to -1.4 forearm: (T score greater or equal to -1.0: NORMAL) (T score from -1.1 to -2.4: OSTEOPENIA) (T score less than or equal to -2.5 to: OSTEOPOROSIS) Impression: Mild to moderate osteopenia within the left femoral neck progressive compared to prior ex am. Although bone mineral density remains within normal limits of the left hip, it has decreased comp ared to prior exam. Patients with diagnosis of osteoporosis or osteopenia should have regular bone mineral density assess ment. For those eligible for Medicare, routine testing is allowed once every 2 years. Testing frequ ency can be increased for patients who have rapidly progressing disease or for those who are receivin g medical therapy to restore bone mass. Reviewed by: Starla Mcnally MD on 08/05/2021 1:50 PM PST Approved by: Starla Mcnally MD on 08/05/2021 1:50 PM PST Station ID: [id number]
== END 2021-08-05 11:59 | disposition home or self-care (01) ==
LOC: DI 11:58
PROVIDERS: ATTEND Family Medicine
DX: M85.88 Other specified disorders of bone density and structure, other site (principal)

== ENCOUNTER 2021-12-17 08:58 | Day surgery (SDC) | payer MEDICARE ==
[2021-12-17] MEDS ORDERED: LACTATED RINGERS 1,000 ML IV ONE (09:01)
--- NOTE | 2021-12-17 09:38 | ANESTHESIA ---
Pre-Anesthesia VS, & Labs - Diagnosis history of colon polyps - Procedure colonoscopy Vital Signs: Temp Pulse Resp BP Pulse Ox 37.1 C 80 16 142/76 H 100 12/17/21 09:20 12/17/21 09:20 12/17/21 09:20 12/17/21 09:20 12/17/21 09:20 Height: 5 ft 4 in Weight (kg): 72 kg Body Mass Index: 27.2 BMI Classification: Overweight - NPO >8 hours - Is Patient ?: No - Lab Results Lab results reviewed: Yes Home Medications and Allergies Home Medications: Ambulatory Orders Diphenoxylate/Atropine [Lomotil] 2 each PO QID PRN 12/10/21 Montelukast [Singulair] 10 mg PO QPM 12/10/21 Zolpidem [Ambien] 5 mg PO HS PRN 12/10/21 Albuterol Sulfate [Proair Hfa Inhaler] 2 puffs INH ONCE PRN 09/16/20 Valsartan/Hydrochlorothiazide [Diovan Hct 160-25 mg Tablet] 1 tab PO DAILY Diphenoxylate/Atropine [Lomotil] 2 each PO QID PRN 12/10/21 Montelukast [Singulair] 10 mg PO QPM 12/10/21 Zolpidem [Ambien] 5 mg PO HS PRN 12/10/21 Allergies/Adverse Reactions: Allergies Allergy/AdvReac Type Severity Reaction Status Date / Time amoxicillin Allergy Hives Verified 09/16/20 20:15 bacitracin Allergy Hives Verified 09/16/20 20:15 clavulanic acid Allergy Hives Verified 09/16/20 20:15 [From Augmentin] griseofulvin Allergy Hives, Verified 12/10/21 10:30 difficulty breathing Sulfa (Sulfonamide Allergy Hives, Verified 12/10/21 10:30 Antibiotics) difficulty breathing Anes History & Medical History - Anesthetic History Anesthesia Complications: reports: No previous complications Family history of Anesthesia Complications: Denies Family history of Malignant Hyperthermia: Denies - Medical History Cardiovascular: reports: Hypertension Pulmonary: reports: Asthma, Sleep apnea Gastrointestinal: reports: Colon polyps, Chronic diarrhea Urinary: reports: None Neuro: reports: None Musculoskeletal: reports: Chronic back pain Endocrine/Autoimmune: reports: None Skin: reports: Rosacea Smoking Status: Former smoker - Surgical History General: reports: Colonoscopy Eyes Ears Nose Throat (EENT): reports: Other Orthopedic: reports: Knee replacement, Other Exam General: Alert, Oriented x3, Cooperative, No acute distress Dental: WNL Mouth Openin Fingerbreadth Neck Mobility: Normal Mallampati classification: II Plan Anesthesia Type: General, Total IV Consent for Procedure(s) Verified and Reviewed: Yes Code Status: Attempt Resuscitation ASA classification: 2-Mild systemic disease Is this case an emergency?: No
[2021-12-17] MEDS ORDERED: PROPOFOL 500 MG/50 ML 500 MG/50 ML VIAL ONE (09:55)
[2021-12-17] MEDS ORDERED: LACTATED RINGERS 350 ML IV ONE (11:11)
[2021-12-17 11:28] VITALS: BP 117/62
--- NOTE | 2021-12-17 12:00 | ANESTHESIA POST OP EVALUATION ---
Anesthesia Post Eval - Post Anesthesia Eval Vitals: Last Vital Signs Temp 36.5 C 12/17/21 11:18 Pulse 85 12/17/21 11:18 Resp 22 12/17/21 11:18 BP 117/62 12/17/21 11:18 Pulse Ox 100 12/17/21 11:18 CV Function Including HR & BP: Stable Pain Control: Satisfactory Nausea & Vomiting: Negative Mental Status: Baseline Respiratory Status: Airway Patent Hydration Status: Satisfactory Anesthesia Complications: None
== END 2021-12-17 08:59 | disposition home or self-care (01) ==
LOC: SDS 08:58
PROVIDERS: ATTEND Surgery
DX: Z12.11 Encounter for screening for malignant neoplasm of colon (principal); K57.30 Diverticulosis of large intestine without perforation or abscess without bleeding; K64.8 Other hemorrhoids; Z86.010 Personal history of colon polyps; K64.4 Residual hemorrhoidal skin tags; Z87.891 Personal history of nicotine dependence; G47.33 Obstructive sleep apnea (adult) (pediatric); J45.909 Unspecified asthma, uncomplicated
CPT/HCPCS: G0105; J7120

== ENCOUNTER 2022-01-01 09:34 | Emergency (ER) | payer MEDICARE ==
[2022-01-01] MEDS ORDERED: DEXAMETHASONE 10 MG/ML VIAL ONE (10:37)
[2022-01-01] MEDS ORDERED: KETOROLAC 30 MG/ML VIAL ONE (10:37)
[2022-01-01] MEDS ORDERED: CHERRY SYRUP 10 ML UDC PO ONE (10:37)
--- NOTE | 2022-01-03 14:54 | XRAY Report ---
PROCEDURE: Knee 3 View LT INDICATIONS: Medial pain weight bearing/ Pt states felt pop in medial aspect and around patella TECHNIQUE: 3 views of the left knee(s) were acquired. COMPARISON: None. FINDINGS: Bones: No fractures or dislocations. Moderate tricompartmental osteoarthritis is seen more prominen t in medial femoral tibial compartment. No suspicious bony lesions. Soft tissues: No joint effusion. No suspicious soft tissue calcifications. IMPRESSION: Moderate tricompartmental osteoarthritis more prominent in medial femoral tibial compart ment. No fracture or dislocation. No significant joint effusion. Reviewed by: Rupret Chery MD on 01/01/2022 11:05 AM PDT Approved by: Rupert Chery MD on 01/01/2022 11:05 AM PDT Station ID: [id number]
--- NOTE | 2022-01-11 13:54 | ED Physician Documentation ---
PD HPI LOWER EXT INJURY - History obtained from History obtained from: Patient - History of Present Illness PD HPI LOW EXT INJURY LOCATION: Left, Knee Type of injury: Other (over use) Where injury occurred: Street Timing - onset: Today Timing - duration: Hours Timing - details: Abrupt onset, Still present Similar symptoms before: Diagnosis (tibial plat fx) Recently seen: Not recently seen - Additional information Additional information: 71-year-old Kari Castorena has come to the emergency department today complaining of pain in her left knee. She is had a prior tibial plateau fracture on the right knee. Today she felt a pop while she was standing and has since had severe pain. She indicates that she has done a lot of walking recently. Past medical history is significant for allergies and hypertension. 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 HEENT: Chronic vision loss, Chronic hearing loss Psych: None Musculoskeletal: Chronic back pain Derm: Rosacea - Past Surgical History Past Surgical History: Yes General: Colonoscopy Ortho: Knee replacement, Other HEENT: Other - Present Medications Home Medications: Ambulatory Orders Medication Instructions Recorded Confirmed Albuterol Sulfate [Proair Hfa 2 puffs INH ONCE PRN 09/16/20 12/10/21 Inhaler] Valsartan/Hydrochlorothiazide 1 tab PO DAILY 09/16/20 12/10/21 [Diovan Hct 160-25 mg Tablet] Diphenoxylate/Atropine [Lomotil] 2 each PO QID PRN 12/10/21 12/10/21 Montelukast [Singulair] 10 mg PO QPM 12/10/21 12/17/21 Zolpidem [Ambien] 5 mg PO HS PRN 12/10/21 12/10/21 - Allergies Allergies/Adverse Reactions: Allergies Allergy/AdvReac Type Severity Reaction Status Date / Time amoxicillin Allergy Hives Verified 09/16/20 20:15 bacitracin Allergy Hives Verified 09/16/20 20:15 clavulanic acid Allergy Hives Verified 09/16/20 20:15 [From Augmentin] griseofulvin Allergy Hives, Verified 12/10/21 10:30 difficulty breathing Sulfa (Sulfonamide Allergy Hives, Verified 12/10/21 10:30 Antibiotics) difficulty breathing - Social History Does the pt smoke?: No Smoking Status: Former smoker Does the pt drink ETOH?: Yes Does the pt have substance abuse?: No - Immunizations Immunizations are current?: Yes - POLST Patient has POLST: No POLST Status: Full Code PD ED PE NORMAL - Vitals Vital signs reviewed: Yes - General General: No acute distress, Well developed/nourished - Respiratory Respiratory: No respiratory distress - Derm Derm: Normal color, Warm and dry, No rash - Extremities Extremities: No deformity, No edema, Other (To the left knee there is pain to palpation of the lateral joint line. Ligaments are stable to testing. No sig joint effusion noted. 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 No fracture or dislocation. No significant joint effusion.), EMP read indepedently, See rad report PD MEDICAL DECISION MAKING - ED course Complexity details: considered differential, d/w patient ED course: 71-year-old female with overuse of her left knee has developed some inflammation associated with this and she is administered Toradol and dexamethasone ointment with some improvement. Departure - Departure Disposition: 01 Home, Self Care Clinical Impression: Arthritis of left knee Discharge Date/Time: 01/01/22 12:00
== END 2022-01-01 12:00 | disposition home or self-care (01) ==
LOC: ED 09:34
DX: M17.12 Unilateral primary osteoarthritis, left knee (principal); I10 Essential (primary) hypertension; Z87.891 Personal history of nicotine dependence
CPT/HCPCS: 73562; 96372; 99283; 99284; A9270

== ENCOUNTER 2023-06-02 11:10 | Outpatient (CLI) | payer MEDICARE ==
--- NOTE | 2023-06-02 15:51 | XRAY Report ---
PROCEDURE: Hips 2V BILAT INDICATIONS: BILATERAL HIP PAIN TECHNIQUE: AP pelvis and 2 views of the hips were acquired. COMPARISON: None. FINDINGS: Bones: No fractures or dislocations. No suspicious bony lesions. Mild bilateral hip osteophytosis w ith osseous hypertrophy. Soft tissues: No suspicious soft tissue calcifications or masses. IMPRESSION: Mild bilateral hip osteoarthritis. Reviewed by: Stella Hay MD, PhD on 06/02/2023 3:50 PM PST Approved by: Stella Hay MD, PhD on 06/02/2023 3:50 PM PST Station ID: [id number]
== END 2023-06-02 11:11 | disposition home or self-care (01) ==
LOC: DI.S 11:10
PROVIDERS: ATTEND Registered Nurse
DX: M16.0 Bilateral primary osteoarthritis of hip (principal)

== ENCOUNTER 2023-11-06 14:38 | Outpatient (CLI) | payer MEDICARE ==
--- NOTE | 2023-11-10 09:24 | Mammography Report ---
BILATERAL DIGITAL SCREENING MAMMOGRAM 3D/2D: 11/06/2023 CLINICAL: Routine screening. Comparison is made to exams dated: 04/17/2021 mammogram, 02/14/2020 mammogram - [facility], 01/18/2020 mammogram, and 12/15/2017 mammogram - [facility]. There are scattered areas of fibroglandular density in both breasts (category b / 25%-50% glandular t issue). There is a focal asymmetry in the left breast at 12 o'clock middle depth. There is architectural dis tortion associated with the focal asymmetry. No other significant masses, calcifications, or other findings are seen in either breast. IMPRESSION: INCOMPLETE: NEEDS ADDITIONAL IMAGING EVALUATION The focal asymmetry in the left breast is indeterminate. Additional views with possible ultrasound a re recommended. Based on the Tyrer Cuzick model (a risk assessment model) the patient's lifetime risk is 4.2% and her 10 year risk is 3.1%. According to the ACR, ACS, and NCCN guidelines, an annual breast MRI exam veronica g with mammogram is recommended if the patient's lifetime risk is 20% or greater. This exam was interpreted at Station ID: [id number]. NOTE: For mammograms, a report in lay terms will be sent to the patient. Approximately 15% of breast malignancies will not be visualized mammographically. In the management of a palpable breast mass, a negative mammogram must not discourage biopsy of a clinically suspicious lesion. Electronically Signed By: Estela Orozco M.D. lk/:11/09/2023 10:21:43 ACR BI-RADS Category 0: Incomplete 3340F PARENCHYMAL PATTERN: (A) - The breast(s) demonstrate(s) scattered fibroglandular densities. BI-RADS CATEGORY: (0) - 0 Mammo and [place] [id number] Immediate follow-up LATERALITY: (B)
== END 2023-11-06 14:39 | disposition home or self-care (01) ==
LOC: DI 14:38
PROVIDERS: ATTEND Registered Nurse
DX: Z12.31 Encounter for screening mammogram for malignant neoplasm of breast (principal); R92.323 Mammographic fibroglandular density, bilateral breasts; R92.8 Other abnormal and inconclusive findings on diagnostic imaging of breast

== ENCOUNTER 2023-11-06 14:49 | Outpatient (CLI) | payer MEDICARE ==
--- NOTE | 2023-11-06 15:54 | DEXA Report ---
PROCEDURE: Dexa Spine and/or Hip INDICATIONS: OSTEOPENIA TECHNIQUE: Dual energy x-ray absorptiometry (DXA) was performed on a Net[employer] System. Regions measur ed are the AP Spine, femoral neck, and if needed forearm. COMPARISON: DEXA on August 05, 2021 FINDINGS: Lumbar Spine: Bone Mineral Density: 1.075 g/cm/cm,T score: -1. There has been no statistically significant change in bone mineral density since the prior study. Left Femoral Neck: Bone Mineral Density: 0.793 g/cm/cm, T score: -1.8. Left Hip: Bone Mineral Density: 0.882 g/cm/cm,T score: -1. There has been no statistically significant change i n bone mineral density since the prior study. (T score greater or equal to -1.0: NORMAL) (T score from -1.1 to -2.4: OSTEOPENIA) (T score less than or equal to -2.5 to: OSTEOPOROSIS) Impression: By WHO criteria, this patient has low bone density (osteopenia). No statistical interval change in bone mineral density of the lumbar spine. No statistical interval c hange in bone mineral density of the hip. Patients with diagnosis of osteoporosis or osteopenia should have regular bone mineral density assess ment. For those eligible for Medicare, routine testing is allowed once every 2 years. Testing frequ ency can be increased for patients who have rapidly progressing disease or for those who are receivin g medical therapy to restore bone mass. Reviewed by: Litzy Coleman MD on 11/06/2023 3:53 PM PDT Approved by: Litzy Coleman MD on 11/06/2023 3:53 PM PDT Station ID: [id number]
== END 2023-11-06 14:50 | disposition home or self-care (01) ==
LOC: DI 14:49
PROVIDERS: ATTEND Registered Nurse
DX: M85.88 Other specified disorders of bone density and structure, other site (principal)

== ENCOUNTER 2023-12-10 10:51 | Outpatient (CLI) | payer MEDICARE ==
--- NOTE | 2023-12-11 08:45 | Mammography Report ---
UNILATERAL LEFT DIGITAL DIAGNOSTIC MAMMOGRAM 3D/2D: 12/10/2023 CLINICAL: Patient returns today to evaluate a focal asymmetry in the left breast. Comparison is made to exams dated: 11/06/2023 mammogram - [facility], 04/17/2021 [place] mogram, 02/14/2020 mammogram - [facility], 01/18/2020 mammogram, and 018 mammogram - [facility]. There are scattered areas of fibroglandular density in the left breast (category b / 25%-50% glandula r tissue). There is a 1.2 cm bilobed, irregular high density mass with a spiculated margin in the left breast at 12 o'clock posterior depth. This is seen in additional views. This is more prominent and increased in size. There is architectural distortion associated with the mass. No other significant masses or calcifications are seen in the breast. IMPRESSION: INCOMPLETE: NEEDS ADDITIONAL IMAGING EVALUATION The 1.2 cm mass in the left breast is indeterminate. An ultrasound is recommended. This was perform ed immediately following this exam. Based on the Tyrer Cuzick model (a risk assessment model) the patient's lifetime risk is 4.2% and her 10 year risk is 3.1%. According to the ACR, ACS, and NCCN guidelines, an annual breast MRI exam veronica g with mammogram is recommended if the patient's lifetime risk is 20% or greater. This exam was interpreted at Station ID: [id number]. NOTE: For mammograms, a report in lay terms will be sent to the patient. Approximately 15% of breast malignancies will not be visualized mammographically. In the management of a palpable breast mass, a negative mammogram must not discourage biopsy of a clinically suspicious lesion. Electronically Signed By: Leanne silvestre/:12/10/2023 11:47:25 ACR BI-RADS Category 0: Incomplete 3340F PARENCHYMAL PATTERN: (A) - The breast(s) demonstrate(s) scattered fibroglandular densities. BI-RADS CATEGORY: (0) - 0 Ultrasound [id number] Immediate follow-up LATERALITY: (B)
--- NOTE | 2023-12-11 08:45 | Ultrasound Report ---
LIMITED ULTRASOUND OF LEFT BREAST AND AXILLA: 12/10/2023 CLINICAL: Patient returns today to evaluate a focal asymmetry in the left breast. Comparison is made to exams dated: 12/10/2023 mammogram, 11/06/2023 mammogram - [facility], 04/17/2021 mammogram, 02/14/2020 ultrasound, 02/14/2020 mammogram - [facility], and 01/18/2020 mammogram - [facility]. Color flow and real-time ultrasound of the left breast 12-1 o'clock, and axilla regions were perform ed. Brown scale images of the real-time examination were reviewed. There is a 0.9 cm x 0.7 cm x 0.8 cm irregular mass with an indistinct, angular, and spiculated margin in the left breast at 1 o'clock posterior depth 5 cm from the nipple. This irregular mass is hypoec hoic with posterior acoustic shadowing. This correlates with mammography findings. There are calcif ications within the mass. Color flow imaging demonstrates that there is no vascularity present. No significant abnormalities were seen sonographically in the left axilla. IMPRESSION: HIGHLY SUGGESTIVE OF MALIGNANCY The 0.9 cm x 0.7 cm x 0.8 cm irregular mass in the left breast is highly suggestive of malignancy. A n ultrasound guided biopsy is recommended. Findings and recommendations were discussed with the mariya ent in person by Dr. Qian Schilling at time of exam. This exam was interpreted at Station ID: [id number]. Electronically Signed By: Leanne silvestre/:12/10/2023 12:14:00 Ultrasound BI-RADS: 5 Highly suggestive of malignancy BI-RADS CATEGORY: (5) - 5 Biopsy [id number] Immediate follow-up LATERALITY: (L)
== END 2023-12-10 10:52 | disposition home or self-care (01) ==
LOC: DI 10:51
PROVIDERS: ATTEND Registered Nurse
DX: R92.322 Mammographic fibroglandular density, left breast (principal); N63.21 Unspecified lump in the left breast, upper outer quadrant